=== PATIENT | male | born 1980 | race Caucasian/White ===

== ENCOUNTER 2019-02-27 15:47 | Observation (INO) | payer OTHER, SELFPAY ==
[2019-02-27 15:48] VITALS: BP 144/86; PULSE 80; RESP 16; TEMP 36.9; O2SAT 98; BMI 32.3
--- NOTE | 2019-02-27 15:55 | CT_ITS ---
STUDY: CT CHEST WITHOUT CONTRAST REASON FOR EXAM: Male, 38 years old. Cellulitis in the left upper chest. RADIATION DOSAGE (If Supplied By Facility): CTDIvol = ( 19.9 ) mGy, DLP = ( 671.25 ) mGycm TECHNIQUE: Transaxial imaging was performed without the administration of intravenous contrast material. Multiplanar coronal and sagittal images were reformatted. Individualized dose optimization techniques were used for this CT. COMPARISON: None. FINDINGS: The lungs are normal. There is no demonstrated pleural abnormality. Normal heart and pericardium. Normal mediastinum. Normal hilar regions. Normal unenhanced pulmonary arteries. Normal aorta arch and descending thoracic aorta. Arthritic change of the spine. Fusion of upper thoracic vertebra. There is skin thickening and subcutaneous edema in the left anterior chest. There is 2.1 cm fluid collection. There is bilateral gynecomastia. There is no demonstrated abnormality of the visualized upper abdomen. CT/Chest without Contrast IMPRESSION: Subcutaneous edema with fluid collection suggesting abscess in the left anterior chest wall. Lungs are clear. Electronically Signed: Wilmer Cuellar MD at 16:43 EDT , Service support ,
--- NOTE | 2019-02-27 15:58 | ED.DCSUM_ITS ---
- ER Visit Summary Date of Service: 02/27/19 Chief Complaint: Left chest abscess History of Present Illness: The patient is a 38 M who had an abscess on the left chest wall. He had a drain in the office by knockout machine operator a couple of days ago. He returns today for a recheck and the cellulitis is spreading on his left chest wall. He states that when they drained it not much came out of the wound. He has been on amoxicillin for a couple of days. He denies any fevers. He has no history of this in the past. Physical Examination: Vital signs reviewed. Patient afebrile. Left chest wall area has induration and cellulitis extending into the mid axillary line on the left. This is below the nipple line. It does appear to be spreading as there is a line of demarcation and it has spread past this. There is no fluctuance at this time. There is no drainage Test Results: White blood count 11.2. CT reveals subcutaneous edema. Emergency Department Course and Treatment: Patient was given a dose of IV vancomycin. Patient will be admitted to the hospital for IV antibiotic treatment. Wound cultures were obtained in the ED. Treatment Plan: [] Disposition: Admit Impression: Chest wall cellulitis Failure of outpatient treatment This note was generated with [employer] dictation software. It may contain incorrect words, spelling, and punctuation that were not noted in review of the chart prior to signing
[2019-02-27 16:14] LABS: Absolute Lymphocyte Count 2.07 X10^3/ul (0.83-4.51); Absolute Neutrophil Count 7.8 X10^3/uL (2.0-7.7); Basophil# 0.06 X10^3/uL; Basophil% 0.5 % (0-1); Eosinophil# 0.21 X10^3/uL; Eosinophils% 1.9 % (0-5); Hematocrit 43.5 % (40-54); Hemoglobin 15.6 g/dl (13.0-16.5); Lymphocyte # 2.07 X10^3/ul (4.0); Lymphocyte % 18.5 % (19-41); Mean Corp Hgb Conc 35.9 g/gl (32-36); Mean Corpuscular Hgb 30.3 pg (27.0-32.0); Mean Corpuscular Volume 84.5 fL (80-94); Mean Platelet Vol. 9.6 fl (6.2-12.0); Monocyte# 1.01 X10^3/uL; Neutrophil # 7.81 X10^3/uL (2.7-7.7); Platelet Count 283 K/mm3 (150-450); RBC Distribution Width CV 12.8 % (11.6-14.6); RBC Distribution Width SD 38.5 fl (35.1-43.9); Red Blood Count 5.15 M/mm3 (4.6-6.2); White Blood Count 11.2 K/mm3 (4.4-11.0)
[2019-02-27 16:16] LABS: POSITIVE COUNT NO; POSITIVE DIFFERENTIAL NO; POSITIVE MORPHOLOGY NO
[2019-02-27 16:28] LABS: Anion Gap 5 (5-15); BUN 13 mg/dL (7-18); BUN/Creat Ratio 11.9 RATIO (10-20); Chloride 104 mmol/L (98-107); Creatinine, Serum 1.09 mg/dL (0.70-1.30); EST Glomerular Filtration Rate 80 mL/min (>60); Est Glom Filt Rate - Afr Amer 97 mL/min (>60); Estimated Creatinine Clearance 102.83 ml/min; Glucose 95 mg/dL (74-106); Potassium 3.8 mmol/L (3.5-5.1); Sodium Level 139 mmol/L (136-145)
--- NOTE | 2019-02-27 17:39 | PCM.HP.STD ---
Problem List (1) Cellulitis of chest wall Status: Acute History of Present Illness Date of Admission: 02/27/19 Chief Complaint: Chest wall cellulitis. The patient is a 38 year old M who presents emergency room due to left chest cellulitis. He reports he has had a small lump under the skin in the left chest area for a long time which his primary care provider told him he thought was a cyst. It has not caused him any problems up until now. 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 He reports he had increased redness of the left chest area following that incident. He went to a tubing machine tender on Sunday who attempted to drain the suspected cyst, he reports no there was no drainage. He was placed on oral amoxicillin and has had increased redness since that time. He denies fever, chills. He denies other past medical history. Past Medical History Allergies No Known Allergies Allergy (Verified 02/27/19 15:50) Home Medications: Ambulatory Orders Medication Instructions Recorded Amoxicillin [Amoxil] 500 mg PO Q12H 02/27/19 Ibuprofen 800 mg PO PRN PRN 02/27/19 Surgical History: - - Right hip replacement, hernia repair, tonsillectomy. Psychiatric History: No pertinent psych hx Lives: Spouse/ Significant Other Smoking Status: Never smoker Tobacco Use: Non-smoker Alcohol: Occasional Drugs: None - *Family History Maternal History Items: - Paternal History Items: High Cholesterol, Heart Disease - open heart, Hypertension Review of Systems Constitutional: Denies: Chills, Fever, Weight Change HEENT: Denies: Head Aches, Sinus Congestion, Sinus Drainage Cardiovascular: Denies: Chest Pain, Palpitations Respiratory: Denies: Cough, Shortness of breath at rest, Sputum production Gastrointestinal: Denies: Abdominal Pain, Nausea, Vomiting Genitourinary: Denies: Dysuria Musculoskeletal: Denies: Joint Pain, Joint Tenderness Skin: Reports: - - Left chest area of redness below left nipple, incision area from attempted abscess drainage. Neurological: Denies: Numbness, Tingling, Focal weakness Psychiatric: Denies: Anxiety, Depression, Homicidal Ideations, Suicidal Ideations Hematologic/ Lymphatic: Denies: Easy Bruising, Easy Bleeding VTE Information - Inpt Only VTE Present on Admission: No VTE Mechan Device Prophylaxis: None VTE Pharm Prophylaxis ordered?: No Reason prophylaxis not ordered:: Treatment Not Indicated Patient Problems: Active and Suspected Problems Cellulitis of chest wall (Acute) - Physical Exam General: Alert, Oriented x3, Cooperative HEENT: Atraumatic, PERRLA, EOMI, Normocephalic Neck: Supple, No JVD, Negative Carotid Bruits Lungs: Clear to auscultation, Normal air movement Cardiovascular: Regular rate, Regular Rhythm, Normal S1, Normal S2, No murmurs Abdomen: Bowel Sounds Present, Soft, Non Tender, Non-Distended Extremities: No clubbing, No cyanosis, No edema, Capillary Refill Less than 3 Seconds Skin: - - Left chest area of erythema below the left nipple, incision from prior attempted abscess drainage. No drainage noted. Musculoskeletal: No Tenderness to Palpation of Joints or Extremities Neurological: Cranial nerves II-XII grossly intact, Neuro grossly intact Psych/Mental Status: Normal Affect, Appropriate Vital Signs Temp Pulse Resp BP Pulse Ox 98.4 F 80 16 144/86 H 98 02/27/19 15:48 02/27/19 15:48 02/27/19 15:48 02/27/19 15:48 02/27/19 15:48 Oxygen Delivery Method Room Air Weight: 245 lb Body Mass Index (BMI) 32.3 Laboratory Tests Past 24 Hrs 02/27/19 02/27/19 16:03 16:03 WBC 11.2 H RBC 5.15 Hgb 15.6 Hct 43.5 MCV 84.5 MCH 30.3 MCHC 35.9 RDW 12.8 RDW Differential 38.5 Plt Count 283 MPV 9.6 Immature Gran % (Auto) 0.100 Neut % (Auto) 70.0 Lymph % (Auto) 18.5 L [place] % (Auto) 9.0 Eos % (Auto) 1.9 Baso % (Auto) 0.5 Absolute Neuts (auto) 7.8 H Absolute Lymphs (auto) 2.07 Total Counted Not Reportable Sodium 139 Potassium 3.8 Chloride 104 Carbon Dioxide 30.0 Anion Gap 5 BUN 13 Creatinine 1.09 Estim Creat Clear Calc 102.83 Est GFR (MDRD) Af Amer 97 Est GFR (MDRD) Non-Af 80 BUN/Creatinine Ratio 11.9 Glucose 95 Calcium 9.0 Assessment/Plan All Active Problems Cellulitis of chest wall (Acute) 1. Left chest wall cellulitis, failed outpatient treatment with amoxicillin-chest CT shows subcutaneous edema with fluid collection suggesting abscess in the left anterior chest wall. Patient was treated with IV vancomycin in ER. Cultures obtained from area of prior attempted I&D. Mild leukocytosis. Afebrile. Begin IV Unasyn. Follow cultures. DVT prophylaxis-not indicated, low risk. Encourage early ambulation. This patient was seen by BILL Matson under the supervision of Dr. Gayle.
[2019-02-27 17:51] VITALS: BP 148/90; PULSE 76; RESP 16; TEMP 36.9; O2SAT 98
[2019-02-27 17:58] VITALS: BMI 32.3
--- NOTE | 2019-02-27 17:58 | CASEMGMT ---
RN CM Assessment Introduced role of RN CM to patient.? Patient is alert, oriented and able?to participate in RN CM Assessment. ?Care providers, pharmacy, and demographics verified. Presentation: Started on Amoxicillin 02/25/19 for Cellulitis to left chest wall Admit Dx: Cellulitis of chest wall Re-Admit: No Barriers/Issues: None PCP: None, patient would like a list to establish PCP Specialists: None [facility]erred [facility] Insurance: MMO Rx Benefit: Yes? ?LNOK: Paige Bernal LW/HPOA: No, Declined offered information Living Arrangements:? Lives with and kids in a 2 story home. 3-4 steps to enter. ADL?s: Independent with ambulation and ADL's. Transportation: Patient drives, to drive on [place] DME: None HHC: None SNF: None Goal: Home DC PLAN: Home with possible IV Abx. Shahab Azar RNCM
[2019-02-27 18:31] VITALS: BP 150/86; PULSE 72; RESP 12; TEMP 37.1; O2SAT 99
[2019-02-27 20:15] VITALS: BP 145/67; PULSE 78; RESP 18; TEMP 37.2; O2SAT 98
[2019-02-27 20:25] LABS: M R Staph aureus DNA By PCR Negative (Negative); Probe Check PASS; Specimen Processing Control PASS; Staph aureus DNA By PCR NEGATIVE (Negative)
--- NOTE | 2019-02-27 22:17 | PCM.CONS.GEN ---
Reason for Consult Date of Consultation: 02/27/19 Reason for Consultation: Left chest wall abscess. REFERRING PHYSICIAN: Dr. Gayle. PLASTIC SHEETS SUPERVISOR: Dr. Josue. History of Present Illness: The patient is a 38 year old M who was admitted to the hospital with a left chest wall abscess inferior to his nipple that started about a week ago when he was running from a cow [place] the farm and hit his chest on a fence while he was trying to get away. He started developing increasing pain, and redness, and swelling. He states he was told he had a cystic lesion in the area for several years without symptoms. Because of his symptomatology, he went to the Residential Fee Appraiser who tried an I&D in the office without expressing any fluid or pus. He was started on Amoxicillin antibiotics. His symptomatology worsened which prompted him to come to the ED. He was given a dose of Vancomycin. He was then started on Unasyn. His WBC was 11.2. CT scan showed subcutaneous edema with fluid collection suggesting abscess in the left anterior chest wall. Patient denies fever. I was asked to evaluate this patient for surgical options for treatment. Past Medical History Allergies No Known Allergies Allergy (Verified 02/27/19 15:50) Current Medications Acetaminophen (Tylenol) 650 mg PO Q6H PRN PRN PRN Reason: Mild Pain (1-3)/Temp > 100.7 F Ampicillin Sodium/Sulbactam (Sodium 3 gm/ Sodium Chloride) 112 mls @ 150 mls/hr IV Q6 GABINO Last Admin: 02/27/19 20:14 Dose: 150 mls/hr Temazepam (Restoril) 15 mg PO QHS PRN PRN PRN Reason: INSOMNIA Home Medications: Ambulatory Orders Medication Instructions Recorded Amoxicillin [Amoxil] 500 mg PO Q12H 02/27/19 Ibuprofen 800 mg PO PRN PRN 02/27/19 Surgical History: - - Right hip replacement, hernia repair, tonsillectomy. Psychiatric History: No pertinent psych hx Lives: Spouse/ Significant Other Smoking Status: Never smoker Tobacco Use: Non-smoker Alcohol: Occasional Drugs: None - *Family History Maternal History Items: - Paternal History Items: High Cholesterol, Heart Disease - open heart, Hypertension Review of Systems Comment: Constitutional: Denies: Chills, Fever, Weight Change. HEENT: Denies: Head Aches, Sinus Congestion, Sinus Drainage. Cardiovascular: Denies: Chest Pain, Palpitations. Respiratory: Denies: Cough, Shortness of breath at rest, Sputum production. Gastrointestinal: Denies: Abdominal Pain, Nausea, Vomiting. Genitourinary: Denies: Dysuria. Musculoskeletal: Denies: Joint Pain, Joint Tenderness. Skin: Reports: - - Left chest area of redness below left nipple, incision area from attempted abscess drainage. Neurological: Denies: Numbness, Tingling, Focal weakness. Psychiatric: Denies: Anxiety, Depression, Homicidal Ideations, Suicidal Ideations. Hematologic/ Lymphatic: Denies: Easy Bruising, Easy Bleeding Patient Problems: Active and Suspected Problems Cellulitis of chest wall (Acute) - Physical Exam General: Alert, Oriented x3, Cooperative. HEENT: PERRLA, EOMI. Neck: Supple, nontender. No cervical adenopathy. Chest Wall: Lungs: Clear to auscultation. On the left chest wall inferior to the nipple is an area of induration and tenderness and increasing redness. There is a horizontal wound in the center from previous attempt at I&D at [employer] [employer] office. The induration and fluctuance measures about 6 cm. The surrounding redness measures about 12 cm with extension toward the axilla. Cardiovascular: Regular rate, Regular Rhythm. Abdomen: Soft, Non-Distended. Extremities: No clubbing, No cyanosis, No edema. No axillary adenopathy. Musculoskeletal: No Tenderness to Palpation of Joints or Extremities Neurological: Cranial nerves II-XII grossly intact. Psych/Mental Status: Normal Affect, Appropriate Vital Signs Temp Pulse Resp BP Pulse Ox 98.9 F 78 18 145/67 H 98 02/27/19 20:15 02/27/19 20:15 02/27/19 20:15 02/27/19 20:15 02/27/19 20:15 Oxygen Delivery Method Room Air Weight: 245 lb Body Mass Index (BMI) 32.3 Laboratory Tests Past 24 Hrs 02/27/19 02/27/19 02/27/19 16:03 16:03 17:40 WBC 11.2 H RBC 5.15 Hgb 15.6 Hct 43.5 MCV 84.5 MCH 30.3 MCHC 35.9 RDW 12.8 RDW Differential 38.5 Plt Count 283 MPV 9.6 Immature Gran % (Auto) 0.100 Neut % (Auto) 70.0 Lymph % (Auto) 18.5 L [place] % (Auto) 9.0 Eos % (Auto) 1.9 Baso % (Auto) 0.5 Absolute Neuts (auto) 7.8 H Absolute Lymphs (auto) 2.07 Total Counted Not Reportable Sodium 139 Potassium 3.8 Chloride 104 Carbon Dioxide 30.0 Anion Gap 5 BUN 13 Creatinine 1.09 Estim Creat Clear Calc 102.83 Est GFR (MDRD) Af Amer 97 Est GFR (MDRD) Non-Af 80 BUN/Creatinine Ratio 11.9 Glucose 95 Calcium 9.0 S.aureus Protein A PCR NEGATIVE MRSA (PCR) Negative Assessment/Plan All Active Problems Open wound of left chest wall with complication (Acute) Chest wall abscess (Acute) Cellulitis of chest wall (Acute) Left chest wall abscess. CT reviewed. There is a fluid collection suggesting an abscess in the left chest wall. Recommend operative intervention with incision and drainage and excisional debridement. Will send tissue to Pathology for analysis to rule out carcinoma and to Microbiology for culture. A positive culture may necessitate antibiotic modification. He is presently on Unasyn. Will leave the wound open and begin wound care with the VAC. If the wound is not that deep, may do daily Silver dressing changes instead. 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 Having a VAC apparatus may get in the way at work. If the VAC is used initially, will change to Silver dressing changes when he is ready to go back to work because logistically it would be easier for him. Anticipate increased metabolic demands from the infection and from the planned surgical wound. Will check a Prealbumin and encourage nutritional supplementation with protein to help the healing process. After discharge, may followup at the Wound Center if the VAC is used. If the healing process reaches a plateau may consider delayed closure with complex secondary wound closure or skin grafting or a skin flap reconstruction. Patient was informed of the risks and complications of the procedure including alternatives to surgery. These were discussed with the patient personally. Patient voices understanding and wishes to proceed. Patient understands that the wound will be left open during the initial postop healing period. Will proceed with surgery tomorrow under general anesthesia. Code Visit Inpatient E&M: 15271 Init Hosp L2 - ICD-10 - L02.213
[2019-02-28] VITALS (11 sets, daily range): BP systolic 118–150; BP diastolic 62–88; PULSE 51–84; RESP 16–18; TEMP 36.7–37.3; O2SAT 95–99; BMI 32.4
[2019-02-28 05:50] LABS: Absolute Lymphocyte Count 2.03 X10^3/ul (0.83-4.51); Absolute Neutrophil Count 6.6 X10^3/uL (2.0-7.7); Basophil# 0.05 X10^3/uL; Basophil% 0.5 % (0-1); Eosinophil# 0.21 X10^3/uL; Eosinophils% 2.1 % (0-5); Hematocrit 42.8 % (40-54); Hemoglobin 15.1 g/dl (13.0-16.5); Lymphocyte # 2.03 X10^3/ul (4.0); Lymphocyte % 20.3 % (19-41); Mean Corp Hgb Conc 35.3 g/gl (32-36); Mean Corpuscular Volume 85.1 fL (80-94); Mean Platelet Vol. 9.9 fl (6.2-12.0); Monocyte# 1.03 X10^3/uL; Monocyte% 10.3 % (0-10); Neutrophil # 6.64 X10^3/uL (2.7-7.7); Neutrophil % 66.6 % (47-70); Platelet Count 256 K/mm3 (150-450); RBC Distribution Width CV 12.8 % (11.6-14.6); RBC Distribution Width SD 39.2 fl (35.1-43.9); Red Blood Count 5.03 M/mm3 (4.6-6.2)
[2019-02-28 05:57] LABS: POSITIVE COUNT NO; POSITIVE DIFFERENTIAL NO; POSITIVE MORPHOLOGY NO
--- NOTE | 2019-02-28 09:55 | NURSING ---
Niesha in [facility] called this morning and states that patient will be picked up for surgery at 1215 today. Primary nurse Zara and SENIOR NURSE MANAGER's notified. Dr. Josue notified this RN this morning that patient does appear to be doing much better- but that after discussion pt decided to go ahead with surgery so that he will begin healing and not have to return at a later day for surgery.
--- NOTE | 2019-02-28 12:56 | PN_ITS ---
Patient Problems: Active and Suspected Problems Cellulitis of chest wall (Acute) Subjective: Patient seen and examined. Cellulitis appears improved. Patient denies fever, chills. Denies other complaints. Plan for surgical debridement with Dr. Josue. - Physical Exam General: Alert, Oriented x3, Cooperative HEENT: Atraumatic, PERRLA, EOMI, Normocephalic Neck: Supple, No JVD, Negative Carotid Bruits Lungs: Clear to auscultation, Normal air movement Cardiovascular: Regular rate, Regular Rhythm, Normal S1, Normal S2, No murmurs Abdomen: Bowel Sounds Present, Soft, Non Tender, Non-Distended Extremities: No clubbing, No cyanosis, No edema, Capillary Refill Less than 3 Seconds Skin: - - Left chest area of erythema below the left nipple, incision from prior attempted abscess drainage. No drainage noted. Erythema improved. Musculoskeletal: No Tenderness to Palpation of Joints or Extremities Neurological: Cranial nerves II-XII grossly intact, Neuro grossly intact Psych/Mental Status: Normal Affect, Appropriate Vital Signs Temp Pulse Resp BP Pulse Ox 98.8 F 73 16 124/79 H 98 02/28/19 11:59 02/28/19 11:59 02/28/19 11:59 02/28/19 11:59 02/28/19 11:59 Oxygen Delivery Method Room Air Weight: 244 lb 14.937 oz Body Mass Index (BMI) 32.4 Intake and Output for Last 24 Hours 02/26/19 02/27/19 02/28/19 23:59 23:59 23:59 Intake Total 100 / 100 Balance 100 / 100 Microbiology Past 72 Hours 02/27/19 17:40 Wound Culture - Preliminary Wound Abcess - Chest No growth-Final to follow Laboratory Tests Past 24 Hrs 02/27/19 02/27/19 02/27/19 16:03 16:03 17:40 WBC 11.2 H RBC 5.15 Hgb 15.6 Hct 43.5 MCV 84.5 MCH 30.3 MCHC 35.9 RDW 12.8 RDW Differential 38.5 Plt Count 283 MPV 9.6 Immature Gran % (Auto) 0.100 Neut % (Auto) 70.0 Lymph % (Auto) 18.5 L [place] % (Auto) 9.0 Eos % (Auto) 1.9 Baso % (Auto) 0.5 Absolute Neuts (auto) 7.8 H Absolute Lymphs (auto) 2.07 Total Counted Not Reportable Sodium 139 Potassium 3.8 Chloride 104 Carbon Dioxide 30.0 Anion Gap 5 BUN 13 Creatinine 1.09 Estim Creat Clear Calc 102.83 Est GFR (MDRD) Af Amer 97 Est GFR (MDRD) Non-Af 80 BUN/Creatinine Ratio 11.9 Glucose 95 Calcium 9.0 S.aureus Protein A PCR NEGATIVE MRSA (PCR) Negative 02/28/19 05:24 WBC 10.0 RBC 5.03 Hgb 15.1 Hct 42.8 MCV 85.1 MCH 30.0 MCHC 35.3 RDW 12.8 RDW Differential 39.2 Plt Count 256 MPV 9.9 Immature Gran % (Auto) 0.200 Neut % (Auto) 66.6 Lymph % (Auto) 20.3 [place] % (Auto) 10.3 H Eos % (Auto) 2.1 Baso % (Auto) 0.5 Absolute Neuts (auto) 6.6 Absolute Lymphs (auto) 2.03 Total Counted Not Reportable Sodium Potassium Chloride Carbon Dioxide Anion Gap BUN Creatinine Estim Creat Clear Calc Est GFR (MDRD) Af Amer Est GFR (MDRD) Non-Af BUN/Creatinine Ratio Glucose Calcium S.aureus Protein A PCR MRSA (PCR) Medical Necessity - Tobacco Use Smoking Status: Never smoker Tobacco Use: Non-smoker Assessment/Plan All Active Problems Cellulitis of chest wall (Acute) 1. Left chest wall cellulitis, failed outpatient treatment with amoxicillin- chest CT shows subcutaneous edema with fluid collection suggesting abscess in the left anterior chest wall. Patient was treated with IV vancomycin in ER. Cultures obtained from area of prior attempted I&D, pending. Mild leukocytosis resolved. Afebrile. Continue IV Unasyn. Dr. Josue consulted. Plan for surgical debridement later today. Anticipate DC home tomorrow. DVT prophylaxis-not indicated, low risk. Encourage early ambulation. This patient was seen by BILL Matson under the supervision of Dr. Gayle.
--- NOTE | 2019-02-28 14:56 | NURSING ---
PT OFF UNIT TO [facility]. REPORT CALLED TO ALEIDA GODINEZ.
--- NOTE | 2019-02-28 17:12 | PCM.OPRPT ---
Report of Operation Date of Procedure: 02/28/19 Pre-Operative Diagnosis: Left chest wall abscess. Post-Operative Diagnosis: Left chest wall abscess involving chest wall muscles. Surgery/Procedure Performed:: Surgical preparation left chest wall with incision and drainage and excisional debridement abscess involving chest wall muscles (16.5 cm2). Description of Surgical Findings:: The patient is a 38 year old M who was admitted to the hospital with a left chest wall abscess inferior to his nipple that started about a week ago when he was running from a cow [place] the farm and hit his chest on a fence while he was trying to get away. He started developing increasing pain, and redness, and swelling. He states he was told he had a cystic lesion in the area for several years without symptoms. Because of his symptomatology, he went to the Manager Trade Marketing who tried an I&D in the office without expressing any fluid or pus. He was started on Amoxicillin antibiotics. His symptomatology worsened which prompted him to come to the ED. He was given a dose of Vancomycin. He was then started on Unasyn. His WBC was 11.2. CT scan showed subcutaneous edema with fluid collection suggesting abscess in the left anterior chest wall. Patient denies fever. I was asked to evaluate this patient for surgical options for treatment. Patient was informed of the risks and complications of the procedure including alternatives to surgery. These were discussed with the patient personally. Patient voices understanding and wishes to proceed. Size of defect left chest wall - 5.5 x 3 x 3 cm. maritime engineer: None Type of Anesthesia:: General Specimen's removed: 1. Left chest wall abscess tissue to Pathology and Microbiology. 2. MRSA Wound DNA by PCR. Drains: None. Estimated Blood Loss (mL): 20 ml. Description of Procedure: Patient was taken to OR in supine position and was placed under general anesthesia. The left chest wall was prepped and draped in the usual fashion. SCD's were placed for DVT prophylaxis. Perioperative antibiotics were given intravenously. Using xylocaine with epinephrine, the left chest wall was infiltrated. After waiting 5 minutes for the anesthetic to take effect, I made a horizontal elliptical incision over the greatest area of induration and fluctuance. Initially there was a lot of fat necrosis in the subcutaneous tissue. In the deeper subcutaneous tissue was a pocket with copious pus that was drained. The pus extended to the chest wall and involved the underlying chest wall muscles. The surrounding scar tissue which included some chest wall muscle was excised and debrided. The induration and fat necrosis was also excised and debrided. Tissue was sent to Pathology for analysis to rule out carcinoma and to Microbiology for culture. A positive culture may necessitate antibiotic modification. A MRSA Wound DNA by PCR was also done. The wound was irrigated with saline. Hemostasis was obtained with electrocautery. The size of the defect left chest wall after incision and drainage and excisional debridement abscess was 5.5 x 3 x 3 cm. The wound was then dressed with Mepitel nonadherent dressing followed by Kerlix gauze and Betadine followed by dry Kerlix gauze and an ABD compression dressing. Patient tolerated the procedure well and was sent to PACU in satisfactory condition. Patient will be sent upstairs for continued postop care. The wound VAC will be placed tomorrow. Grafts/Implants Used: None. - Complications None. - Admit VTE Documentation VTE Present on Admission: No VTE Mechan Device Prophylaxis: SCD's VTE Pharm Prophylaxis ordered?: No Code Visit Surgery Charges CPT - 90629 L02.213, S21.102A 24173 L02.213
--- NOTE | 2019-02-28 17:16 | OP.PCM_ITS ---
Report of Operation Date of Procedure: 02/28/19 Pre-Operative Diagnosis: Left chest wall abscess. Post-Operative Diagnosis: Left chest wall abscess involving chest wall muscles. Surgery/Procedure Performed:: Surgical preparation left chest wall with incision and drainage and excisional debridement abscess involving chest wall muscles (16.5 cm2). Description of Surgical Findings:: The patient is a 38 year old M who was admitted to the hospital with a left chest wall abscess inferior to his nipple that started about a week ago when [place] hit his chest on a fence while he was trying to get away. He started developing increasing pain, and redness, and swelling. He states he was told he had a cystic lesion in the area for several years without symptoms. Because of his symptomatology, he went to the De rmatologist who tried an I&D in the office without expressing any fluid or pus. He was started on Amoxicillin antibiotics. His symptomatology worsened which prompted him to come to the ED. He was given a dose of Vancomycin. He was then started on Unasyn. His WBC was 11.2. CT scan showed subcutaneous edema with fluid collection suggesting abscess in the left anterior chest wall. Patient denies fever. I was asked to evaluate this patient for surgical options for treatment. Patient was informed of the risks and complications of the procedure including alternatives to surgery. These were discussed with the patient personally. Patient voices understanding and wishes to proceed. Size of defect left chest wall - 5.5 x 3 x 3 cm. chief technology officer: None Type of Anesthesia:: General Specimen's removed: 1. Left chest wall abscess tissue to Pathology and Microbiology. 2. MRSA Wound DNA by PCR. Drains: None. Estimated Blood Loss (mL): 20 ml. Description of Procedure: Patient was taken to OR in supine position and was placed under general anesthesia. The left chest wall was prepped and draped in the usual fashion. SCD's were placed for DVT prophylaxis. Perioperative antibiotics were given intravenously. Using xylocaine with epinephrine, the left chest wall was infiltrated. After waiting 5 minutes for the anesthetic to take effect, I made a horizontal elliptical incision over the greatest area of induration and fluctuance. Initially there was a lot of fat necrosis in the subcutaneous tissue. In the deeper subcutaneous tissue was a pocket with copious pus that was drained. The pus extended to the chest wall and involved the underlying chest wall muscles. The surrounding scar tissue which included some chest wall muscle was excised and debrided. The induration and fat necrosis was also e xcised and debrided. Tissue was sent to Pathology for analysis to rule out carcinoma and to Microbiology for culture. A positive culture may necessitate antibiotic modification. A MRSA Wound DNA by PCR was also done. The wound was irrigated with saline. Hemostasis was obtained with electrocautery. The size of the defect left chest wall after incision and drainage and excisional debridement abscess was 5.5 x 3 x 3 cm. The wound was then dressed with Mepitel nonadherent dressing followed by Kerlix gauze and Betadine followed by dry Kerlix gauze and an ABD compression dressing. Patient tolerated the procedure well and was sent to PACU in satisfactory condition. Patient will be sent upstairs for continued postop care. The wound VAC will be placed tomorrow. Grafts/Implants Used: None. - Complications None. - Admit VTE Documentation VTE Present on Admission: No VTE Mechan Device Prophylaxis: SCD's VTE Pharm Prophylaxis ordered?: No Code Visit Surgery Charges CPT - 25634 L02.213, S21.102A 77204 L02.213
[2019-02-28] MEDS: Acetaminophen 325 MG Tablet 650 MG PO (21:50)
[2019-03-01 03:53] VITALS: BP 122/70; PULSE 55; RESP 16; TEMP 36.9; O2SAT 98
[2019-03-01] MEDS: oxyCODONE 5 MG Tablet 10 MG PO ×2 (05:32→16:14)
[2019-03-01 07:38] VITALS: BP 120/82; PULSE 54; RESP 16; TEMP 36.8; O2SAT 97
[2019-03-01 07:58] LABS: Hematocrit 44.2 % (40-54); Hemoglobin 15.5 g/dl (13.0-16.5); Mean Corp Hgb Conc 35.1 g/gl (32-36); Mean Corpuscular Hgb 30.6 pg (27.0-32.0); Mean Corpuscular Volume 87.4 fL (80-94); Mean Platelet Vol. 9.7 fl (6.2-12.0); Platelet Count 265 K/mm3 (150-450); RBC Distribution Width CV 12.7 % (11.6-14.6); RBC Distribution Width SD 40.7 fl (35.1-43.9); Red Blood Count 5.06 M/mm3 (4.6-6.2); White Blood Count 8.6 K/mm3 (4.4-11.0)
[2019-03-01 08:02] LABS: Scan Indicated on CBC? Y/N NO
[2019-03-01 08:08] VITALS: PULSE 54
[2019-03-01 08:21] LABS: Anion Gap 4 (5-15); BUN 12 mg/dL (7-18); BUN/Creat Ratio 12.3 RATIO (10-20); Calcium,Total 8.8 mg/dL (8.5-10.1); Chloride 111 mmol/L (98-107); Creatinine, Serum 0.97 mg/dL (0.70-1.30); EST Glomerular Filtration Rate 91 mL/min (>60); Est Glom Filt Rate - Afr Amer 110 mL/min (>60); Estimated Creatinine Clearance 112.22 ml/min; Glucose 99 mg/dL (74-106); Potassium 4.4 mmol/L (3.5-5.1); Prealbumin 27.2 mg/dL (20.0-40.0); Sodium Level 141 mmol/L (136-145)
[2019-03-01] MEDS: 0.9% NaCl Peripheral Flush Adult/Peds IV (11:55)
[2019-03-01] MEDS: HYDROmorphone 1 MG/ML Syringe IV (11:56)
--- NOTE | 2019-03-01 12:34 | PN_ITS ---
Patient Problems: Active and Suspected Problems Cellulitis of chest wall (Acute) Subjective: Patient seen and examined. Reports increased chest discomfort following I&D yesterday. Denies fever, chills. Denies other associated complaints. - Physical Exam General: Alert, Oriented x3, Cooperative HEENT: Atraumatic, PERRLA, EOMI, Normocephalic Neck: Supple, No JVD, Negative Carotid Bruits Lungs: Clear to auscultation, Normal air movement Cardiovascular: Regular rate, Regular Rhythm, Normal S1, Normal S2, No murmurs Abdomen: Bowel Sounds Present, Soft, Non Tender, Non-Distended Extremities: No clubbing, No cyanosis, No edema, Capillary Refill Less than 3 Seconds Skin: No rashes, No breakdown, - - Left chest postoperative dressing clean dry and intact. Musculoskeletal: No Tenderness to Palpation of Joints or Extremities Neurological: Cranial nerves II-XII grossly intact, Neuro grossly intact Psych/Mental Status: Normal Affect, Appropriate Vital Signs Temp Pulse Resp BP Pulse Ox 98.2 F 54 L 16 120/82 H 97 03/01/19 07:38 03/01/19 08:08 03/01/19 07:38 03/01/19 07:38 03/01/19 07:38 Oxygen Delivery Method Room Air Weight: 244 lb 14.937 oz Body Mass Index (BMI) 32.4 Intake and Output for Last 24 Hours 02/27/19 02/28/19 03/01/19 23:59 23:59 23:59 Intake Total 633 / 633 237 / 237 Balance 633 / 633 237 / 237 Microbiology Past 72 Hours 02/27/19 17:40 Gram Stain - Final Wound Abcess - Chest Wound Culture - Preliminary No growth-Final to follow Laboratory Tests Past 24 Hrs 03/01/19 03/01/19 07:25 07:25 WBC 8.6 RBC 5.06 Hgb 15.5 Hct 44.2 MCV 87.4 MCH 30.6 MCHC 35.1 RDW 12.7 RDW Differential 40.7 Plt Count 265 MPV 9.7 Sodium 141 Potassium 4.4 Chloride 111 H Carbon Dioxide 26.0 Anion Gap 4 L BUN 12 Creatinine 0.97 Estim Creat Clear Calc 112.22 Est GFR (MDRD) Af Amer 110 Est GFR (MDRD) Non-Af 91 BUN/Creatinine Ratio 12.3 Glucose 99 Calcium 8.8 Prealbumin 27.2 Medical Necessity - Tobacco Use Smoking Status: Never smoker Tobacco Use: Non-smoker Assessment/Plan All Active Problems Cellulitis of chest wall (Acute) 1. Left chest wall abscess with cellulitis, failed outpatient treatment with amoxicillin-chest CT shows subcutaneous edema with fluid collection suggesting abscess in the left anterior chest wall. Cultures obtained from area of prior attempted I&D, pending. Mild leukocytosis resolved. Afebrile. Continue IV Unasyn. Dr. Josue consulted. Patient underwent incision and drainage and excisional debridement of abscess involving the chest wall muscles 02/28/19. M RSA/MSSA PCR negative. PRN pain regimen. Plan for wound vac placement Sunday. DVT prophylaxis-not indicated, low risk. Encourage early ambulation. This patient was seen by BILL Matson under the supervision of Dr. Gayle.
--- NOTE | 2019-03-01 13:03 | PCM.PN.SRG ---
Patient Problems: Active and Suspected Problems Cellulitis of chest wall (Acute) Subjective: Postop #1 Patient is resting comfortably. - Physical Exam General: Alert, Oriented x3 HEENT: PERRLA, EOMI Oral: Moist Mucosa Neck: Supple Abdomen: Soft, Non-Distended Skin: Ulcer/ Wound - left chest wall wound is clean. No active bleeding noted. No further evidence of infection noted. VAC will be applied today. Neurological: Cranial nerves II-XII grossly intact Psych/Mental Status: Normal Affect, Appropriate Vital Signs Temp Pulse Resp BP Pulse Ox 98.2 F 54 L 16 120/82 H 97 03/01/19 07:38 03/01/19 08:08 03/01/19 07:38 03/01/19 07:38 03/01/19 07:38 Oxygen Delivery Method Room Air Weight: 244 lb 14.937 oz Body Mass Index (BMI) 32.4 Intake and Output for Last 24 Hours 02/27/19 02/28/19 03/01/19 23:59 23:59 23:59 Intake Total 633 / 633 237 / 237 Balance 633 / 633 237 / 237 Microbiology Past 72 Hours 02/28/19 Unknown Wound Culture - Preliminary Tissue - Chest No growth-Final to follow 02/27/19 17:40 Gram Stain - Final Wound Abcess - Chest Wound Culture - Preliminary No growth-Final to follow Laboratory Tests Past 24 Hrs 03/01/19 03/01/19 03/01/19 07:25 07:25 11:32 WBC 8.6 RBC 5.06 Hgb 15.5 Hct 44.2 MCV 87.4 MCH 30.6 MCHC 35.1 RDW 12.7 RDW Differential 40.7 Plt Count 265 MPV 9.7 Sodium 141 Potassium 4.4 Chloride 111 H Carbon Dioxide 26.0 Anion Gap 4 L BUN 12 Creatinine 0.97 Estim Creat Clear Calc 112.22 Est GFR (MDRD) Af Amer 110 Est GFR (MDRD) Non-Af 91 BUN/Creatinine Ratio 12.3 Glucose 99 Calcium 8.8 Prealbumin 27.2 S.aureus Protein A PCR Pending MRSA (PCR) Pending Medical Necessity - Tobacco Use Smoking Status: Never smoker Tobacco Use: Non-smoker Assessment/Plan All Active Problems Cellulitis of chest wall (Acute) 1. Left chest wall abscess involving chest wall muscles. 2. Open surgical wound left chest wall. 3. s/p surgical preparation left chest wall with incision and drainage and excisional debridement abscess involving chest wall muscles (16.5 cm2) Wound is stable. No active bleeding seen. No further evidence of infection. VAC will be applied today. Operative culture is negative thus far. Continue Unasyn. Prealbumin was 27.2. Encourage nutritional supplementation with protein to help the healing process. Awaiting VAC approval. Once it's approved, may be discharged. Anticipate po antibiotics. After discharge, may followup at the Wound Center.
[2019-03-01 13:37] VITALS: BP 127/78; PULSE 60; RESP 16; TEMP 36.7; O2SAT 96
[2019-03-01 14:40] LABS: M R Staph aureus DNA By PCR Negative (Negative); Probe Check PASS; Specimen Processing Control PASS; Staph aureus DNA By PCR NEGATIVE (Negative)
--- NOTE | 2019-03-01 17:20 | NURSING ---
DESIRAE called for placement of wound vac #[id number].... confirmation #[id number] spoke with Yola
[2019-03-01 20:02] VITALS: BP 145/74; PULSE 58; RESP 16; TEMP 36.9; O2SAT 98
--- NOTE | 2019-03-02 | ABS_PTH ---
PATIENT: SANDOVAL JALLOH LOC: [facility] U#:[id number] AGE/SX: 38/M ROOM: [facility]314 RE02/27/[address]: Dr. Daren Mora MD : 1980 BED: 1 DIS: 03/03/2019 SPEC #: [id number] RECD: 03/03/19 07:15 STATUS: LISA REQ #: [id number] MARU: 03/02/19 00:[address]: Joseph Josue DEPT: SURGICAL PATHOLOGY RECD BY: Osito Mccullough ENTERED: 03/03/19 13:15 SP TYPE: Abscess OTHR DR: MD Dr. Kurt Kilgore DO Dr. Prakash Chand, MD No Primary Care Phys Tissues: Chest wall, NOS Procedures: Surgery Specimen Level IV Comments: @ Ordering doctor for SUIII edited from to @ by ANAMIKAOD at 03/03/19 1451 @ Submitting doctor edited from to @ by RGOOD at 03/03/19 1451 HEADER OPERATION: Incision and drainage chest wall abscess PRE-OP DIAGNOSIS: Left chest wall abscess TISSUE SUBMITTED: Left chest wall abscess MICROSCOPIC DIAGNOSIS Left chest wall skin and soft tissue, excision: Ulceration with associated acute and chronic inflammation, granulation, abscess formation and focal fat necrosis. AM:elmer 03/04/19 MICROSCOPIC DESCRIPTION Slides are reviewed. GROSS DESCRIPTION Received in fixative is one container labeled with the patient's name and designated left chest wall. The specimen consists of a piece of skin with underlying tissue. The skin piece measures 3 x 2.5 cm. It was previously sectioned. The underlying adipose tissue measures 5 x 4.5 x 3 cm. No mass lesion is identified. Almond Roaster sections are submitted in two cassettes. / SJ:elmer 03/03/19 TC:2 CPT: 65601
[2019-03-02 01:56] VITALS: BP 135/84; PULSE 57; RESP 16; TEMP 36.8; O2SAT 99
[2019-03-02 08:00] VITALS: BP 127/84; PULSE 60; RESP 16; TEMP 36.8; O2SAT 97
--- NOTE | 2019-03-02 10:25 | PCM.PROGNOTE ---
Patient Problems: Active and Suspected Problems Cellulitis of chest wall (Acute) Subjective: Patient seen and examined. Wound VAC placed yesterday. Patient denies significant pain. Denies other complaints. - Physical Exam General: Alert, Oriented x3, Cooperative HEENT: Atraumatic, PERRLA, EOMI, Normocephalic Neck: Supple, No JVD, Negative Carotid Bruits Lungs: Clear to auscultation, Normal air movement Cardiovascular: Regular rate, Regular Rhythm, Normal S1, Normal S2, No murmurs Abdomen: Bowel Sounds Present, Soft, Non Tender, Non-Distended Extremities: No clubbing, No cyanosis, No edema, Capillary Refill Less than 3 Seconds Skin: No rashes, No breakdown, - - Left chest wound VAC in place. Musculoskeletal: No Tenderness to Palpation of Joints or Extremities Neurological: Cranial nerves II-XII grossly intact, Neuro grossly intact Psych/Mental Status: Normal Affect, Appropriate Vital Signs Temp Pulse Resp BP Pulse Ox 98.2 F 60 16 127/84 H 97 03/02/19 08:00 03/02/19 08:00 03/02/19 08:00 03/02/19 08:00 03/02/19 08:00 Oxygen Delivery Method Room Air Weight: 244 lb 14.937 oz Body Mass Index (BMI) 32.4 Intake and Output for Last 24 Hours 02/28/19 03/01/19 03/02/19 23:59 23:59 23:59 Intake Total 633 / 633 237 / 237 880 / 880 Balance 633 / 633 237 / 237 880 / 880 Microbiology Past 72 Hours 02/28/19 Unknown Gram Stain - Final Tissue - Chest Wound Culture - Preliminary No growth-Final to follow 02/27/19 17:40 Gram Stain - Final Wound Abcess - Chest Wound Culture - Preliminary No growth-Final to follow Laboratory Tests Past 24 Hrs 03/01/19 11:32 S.aureus Protein A PCR NEGATIVE MRSA (PCR) Negative Medical Necessity - Tobacco Use Smoking Status: Never smoker Tobacco Use: Non-smoker Assessment/Plan All Active Problems Open wound of left chest wall with complication (Acute) Chest wall abscess (Acute) Cellulitis of chest wall (Acute) 1. Left chest wall abscess with cellulitis, failed outpatient treatment with amoxicillin-chest CT shows subcutaneous edema with fluid collection suggesting abscess in the left anterior chest wall. Cultures obtained from area of prior attempted I&D, pending. Mild leukocytosis resolved. Afebrile. Continue IV Unasyn. Dr. Josue consulted. Patient underwent incision and drainage and excisional debridement of abscess involving the chest wall muscles 02/28/19. MRSA/MSSA PCR negative. PRN pain regimen. Wound VAC placed 03/01/2019. Patient will need transition to home vac tomorrow and home health set up. DVT prophylaxis-not indicated, low risk. Encourage early ambulation. This patient was seen by BILL Matson under the supervision of Dr. Gayle.
[2019-03-02 15:16] VITALS: BP 129/71; PULSE 57; RESP 18; TEMP 36.8; O2SAT 96
[2019-03-02 20:11] VITALS: BP 140/72; PULSE 59; RESP 16; TEMP 36.7; O2SAT 98
--- NOTE | 2019-03-02 23:09 | PCM.PN.SRG ---
Subjective: Postop #2 Patient is resting comfortably. Has some soreness on her left chest wall but is tolerable. - Physical Exam General: Alert, Oriented x3 HEENT: PERRLA, EOMI Oral: Moist Mucosa Neck: Supple Abdomen: Soft, Non-Distended Skin: Ulcer/ Wound - left chest wall wound is stable. VAC in place. Minimal drainage in the canister. Neurological: Cranial nerves II-XII grossly intact Psych/Mental Status: Normal Affect, Appropriate Vital Signs Temp Pulse Resp BP Pulse Ox 98.0 F 59 L 16 140/72 H 98 03/02/19 20:11 03/02/19 20:11 03/02/19 20:11 03/02/19 20:11 03/02/19 20:11 Oxygen Delivery Method Room Air Weight: 244 lb 14.937 oz Body Mass Index (BMI) 32.4 Intake and Output for Last 24 Hours 02/28/19 03/01/19 03/02/19 23:59 23:59 23:59 Intake Total 633 / 633 237 / 237 880 / 880 Balance 633 / 633 237 / 237 880 / 880 Microbiology Past 72 Hours 02/28/19 Unknown Gram Stain - Final Tissue - Chest Wound Culture - Preliminary No growth-Final to follow 02/27/19 17:40 Gram Stain - Final Wound Abcess - Chest Wound Culture - Preliminary No growth-Final to follow Medical Necessity - Tobacco Use Smoking Status: Never smoker Tobacco Use: Non-smoker Assessment/Plan All Active Problems Open wound of left chest wall with complication (Acute) Chest wall abscess (Acute) Cellulitis of chest wall (Acute) 1. Left chest wall abscess involving chest wall muscles. 2. Open surgical wound left chest wall. 3. s/p surgical preparation left chest wall with incision and drainage and excisional debridement abscess involving chest wall muscles (16.5 cm2) Wound is stable. VAC in place. To be changed tomorrow. Operative culture is negative thus far. Continue Unasyn. Can discharge home on Augmentin. Prealbumin was 27.2. Encourage nutritional supplementation with protein to help the healing process. Awaiting VAC approval. Once it's approved, may be discharged. After discharge, may followup at the Wound Center.
[2019-03-02] MEDS: oxyCODONE 5 MG Tablet 10 MG PO (23:24)
[2019-03-02] MEDS: 0.9% NaCl Peripheral Flush Adult/Peds IV (23:50)
[2019-03-03 02:05] VITALS: BP 126/74; PULSE 55; RESP 16; TEMP 36.4; O2SAT 100
[2019-03-03 08:01] VITALS: BP 138/86; PULSE 60; RESP 18; TEMP 37; O2SAT 98
[2019-03-03 08:05] VITALS: PULSE 64
[2019-03-03] MEDS: oxyCODONE 5 MG Tablet 10 MG PO (09:41)
[2019-03-03] MEDS: 0.9% NaCl Peripheral Flush Adult/Peds IV ×2 (09:42→11:46)
--- NOTE | 2019-03-03 10:06 | CASEMGMT ---
HERBERT QUIGLEY received updated that patient will require HHC and wound vac at discharge. Referral sent to [facility] and they are able to accept the patient. Patient updated regarding HHC setup and voiced understanding. HERBERT QUIGLEY will continue to follow this patient and plan for a safe discharge.
--- NOTE | 2019-03-03 10:24 | WORK.SCH_ITS ---
Work/School Excuse Work/School Excuse for:: Patient and family Please excuse this person from:: Other - Patient and family needed to cancel their plane reservations for 03/01/19 to [place] because the patient was admitted to hospital 02/27/19 for a severe infection that required complex surgery on 02/28/19. He will require antibiotics and wound care until healed and won't be able to fly until the wound is healed, tentatively 04/19/19. If you have any questions regarding these medical decisions please do not hesitate to contact me at [phone]. From: 02/27/19 through: 04/19/19 - tentative
--- NOTE | 2019-03-03 10:45 | NURSING ---
wound photo: left chest
--- NOTE | 2019-03-03 11:50 | DCINST_ITS ---
You will use the following diet at home:: No restrictions Discharge Activity: Return to Normal Activity Call your doctor if you observe: Fever of 101 or Higher, Uncontrolled pain Allergies/Adverse Reactions: Allergies No Known Allergies Allergy (Verified 02/27/19 15:50) Medications to take at Discharge Ibuprofen 800 mg PO PRN PRN 02/27/19 Amox/Clavulanate Tablet [Augmentin Tablet] 875 mg PO Q12H #10 tablet 03/03/19 Oxycodone [Oxyir] 10 mg PO Q4H PRN PRN 5 Days #30 tablet 03/03/19 The following prescriptions were given: Oxycodone [Oxyir] 10 mg PO Q4H PRN PRN 5 Days #30 tablet PRN Reason: Pain Amox/Clavulanate Tablet [Augmentin Tablet] 875 mg PO Q12H #10 tablet Primary Care Physician: Care Physician,No Primary [Primary Care Provider] - Please follow up with your Primary Care Physician in: 1 Week Test Results: Test results from this visit will be discussed in further detail at your follow- up appointment, if applicable. Please Follow Up With: Wound Center - Dr. Josue When: 1 Week Proposed Discharge Date: 03/03/19
--- NOTE | 2019-03-03 14:33 | CHAPLAIN ---
Type of Pastoral Visit _x__ Initial Visit ___ Follow-up Visit ___ On-call Visit ___ General Patient Visit ___ Spiritual Assessment ___ Family Conference ___ Bereavement ___ Rapid Response ___ Code Blue ___ Other (describe below) Pastoral Care Referral From _x__ Patient ___ Family ___ Nurse ___ Physician ___ [employer] Driver ___ Barrel Reamer ___ Other (describe below) Sacrament/Intervention _x__ Active listening ___ Anointing ___ Muslim ___ Bereavement ___ Communion ___ [place] exploration ___ ___ Life review ___ Prayer ___ Reconciliation ___ Sacrament of Sick ___ Supportive presence ___ Wedding ___ Other (describe below) Pastoral Comments
--- NOTE | 2019-03-03 14:48 | PCM.DC.SUM ---
<Lourdes Forbes - Last Filed: 03/03/19 14:53> Discharge Date and Diagnosis Date of Admission: 02/27/19 Date of Discharge: 03/03/19 - Primary Discharge Diagnosis 1. Left chest wall abscess with cellulitis, failed outpatient treatment with amoxicillin Hospital Course and Treatment Imaging Results: Diagnostic Data Chest CT 02/27/19 15:55 IMPRESSION: Subcutaneous edema with fluid collection suggesting abscess in the left anterior chest wall. Lungs are clear. Electronically Signed: Wilmer Cuellar MD at 16:43 EDT , Service support , Consultations 03/03/19 07:33 Consult: Onc/Wound/veterinary epidemiologist Routine Comment: Reason for Consult:: VAC left chest Dr. Josue- Plastic Surgery Operations: - - Left chest wound I&D Procedures: None Summary of Care Provided: The patient is a 38 year old M admitted 02/27/2019 due to chest wall cellulitis. 1. Left chest wall abscess with cellulitis, failed outpatient treatment with amoxicillin-chest CT shows subcutaneous edema with fluid collection suggesting abscess in the left anterior chest wall. Cultures obtained from area of prior attempted I&D, no growth. Mild leukocytosis resolved. Afebrile. Patient received IV Unasyn during admission. Dr. Josue consulted. Patient underwent incision and drainage and excisional debridement of abscess involving the chest wall muscles 02/28/19. MRSA/MSSA PCR negative. Wound VAC placed 03/01/2019. Patient will have home health at discharge. Follow-up with primary care physician in 1 week. Follow-up with wound center/Dr. Josue in 1 week. General: Alert, Oriented x3, Cooperative HEENT: Atraumatic, PERRLA, EOMI, Normocephalic Neck: Supple, No JVD, Negative Carotid Bruits Lungs: Clear to auscultation, Normal air movement Cardiovascular: Regular rate, Regular Rhythm, Normal S1, Normal S2, No murmurs Abdomen: Bowel Sounds Present, Soft, Non Tender, Non-Distended Extremities: No clubbing, No cyanosis, No edema, Capillary Refill Less than 3 Seconds Skin: No rashes, No breakdown, - - Left chest wound VAC in place. Musculoskeletal: No Tenderness to Palpation of Joints or Extremities Neurological: Cranial nerves II-XII grossly intact, Neuro grossly intact Psych/Mental Status: Normal Affect, Appropriate Patient seen and examined prior to discharge. Physical assessment as noted above. Patient is stable for discharge with follow up recommendations as noted above. This patient was seen by BILL Matson under the supervision of Dr. Mora. - Physical Exam Vital Signs Temp Pulse Resp BP Pulse Ox 98.6 F 64 18 138/86 H 98 03/03/19 08:01 03/03/19 08:05 03/03/19 08:01 03/03/19 08:01 03/03/19 08:01 Oxygen Delivery Method Room Air Weight: 244 lb 14.937 oz Body Mass Index (BMI) 32.4 Intake and Output for Last 24 Hours 03/01/19 03/02/19 03/03/19 23:59 23:59 23:59 Intake Total 237 / 237 2045 / 2045 1600 / 1600 Balance 237 / 237 2045 / 2045 1600 / 1600 Microbiology Past 72 Hours 02/28/19 Unknown Gram Stain - Final Tissue - Chest Wound Culture - Final No growth aerobically. Anaerobic Culture - Preliminary Checking for anaerobes, further studies to follow. 02/27/19 17:40 Gram Stain - Final Wound Abcess - Chest Wound Culture - Final No growth aerobically. Anaerobic Culture - Preliminary Checking for anaerobes, further studies to follow. Discharge Diet: No Restrictions Discharge Activity: Return to Normal Activity Call your doctor if you observe: Fever of 101 or Higher, Uncontrolled pain Home Medications: Medications to take at Discharge Ibuprofen 800 mg PO PRN PRN 02/27/19 Amox/Clavulanate Tablet [Augmentin Tablet] 875 mg PO Q12H #10 tablet 03/03/19 Diazepam [Valium] 5 mg PO 4X/DAY PRN PRN #30 tab 03/03/19 Oxycodone [Oxyir] 10 mg PO Q4H PRN PRN 5 Days #30 tablet 03/03/19 Following Prescrptions Were Given to Patient: Oxycodone [Oxyir] 10 mg PO Q4H PRN PRN 5 Days #30 tablet PRN Reason: Pain Amox/Clavulanate Tablet [Augmentin Tablet] 875 mg PO Q12H #10 tablet Diazepam [Valium] 5 mg PO 4X/DAY PRN PRN #30 tab PRN Reason: Spasms Primary Care Physician: Care Physician,No Primary [Primary Care Provider] - Please follow up with your Primary Care Physician in: 1 Week Please Follow Up With: Wound Center - Dr. Josue When: 1 Week Disposition: Home with Home Health Minutes spent on discharge:: 35 Patient Condition:: Stable Medical Necessity - Tobacco Use Smoking Status: Never smoker Tobacco Use: Non-smoker Meaningful Use Info Meaningful Use Diagnoses (Choose all that apply): None applicable <Daren Mora - Last Filed: 03/03/19 15:34> Hospital Course and Treatment Consultations 03/03/19 07:33 Consult: Onc/Wound/veterinary epidemiologist Routine Comment: Reason for Consult:: VAC left chest Summary of Care Provided: This patient was seen in conjunction with Lourdes SR. I have independently interviewed and examined the patient and reviewed pertinent history, examination findings, laboratory and plan of management. I have reviewed the note and agree with the documented findings with the few additional points. In brief, patient is admitted for left chest wall abscess with cellulitis who failed outpatient treatment with amoxicillin. CT chest was done which showed features of abscess in left anterior chest wall with subcutaneous edema. Incision and drainage was done culture showed no growth. Leukocytosis resolved. Patient was on IV Unasyn during admission. Wound VAC was placed today. Patient has been discharged on Augmentin. Follow-up has been set up with Dr. Josue. I have discussed my assessment with Lourdes SR and orders have been reviewed. [] Subjective: Patient is sitting in the chair. Patient had wound VAC placed in the left chest wall wound abscess for which excision was done by Dr. Josue. Fever/chills. Patient was seen and wound VAC was placed and dressing done by Cristy. - Physical Exam General: Alert, Oriented x3, Cooperative HEENT: Atraumatic, PERRLA, EOMI, Normocephalic Neck: Supple, No JVD, Negative Carotid Bruits Lungs: Clear to auscultation, Normal air movement Cardiovascular: Regular rate, Regular Rhythm, Normal S1, Normal S2, No murmurs Abdomen: Bowel Sounds Present, Soft, Non Tender, Non-Distended Extremities: No edema, Capillary Refill Less than 3 Seconds Skin: Ulcer/ Wound - Wound VAC in place in left chest wall. No surrounding erythema, induration or tenderness. Dressing is dry. Musculoskeletal: No Tenderness to Palpation of Joints or Extremities Neurological: Cranial nerves II-XII grossly intact Psych/Mental Status: Normal Affect, Appropriate Vital Signs Temp Pulse Resp BP Pulse Ox 98.6 F 64 18 138/86 H 98 03/03/19 08:01 03/03/19 08:05 03/03/19 08:01 03/03/19 08:01 03/03/19 08:01 Oxygen Delivery Method Room Air Weight: 244 lb 14.937 oz Body Mass Index (BMI) 32.4 Intake and Output for Last 24 Hours 03/01/19 03/02/19 03/03/19 23:59 23:59 23:59 Intake Total 237 / 237 2045 / 2045 1600 / 1600 Balance 237 / 237 2045 / 2045 1600 / 1600 Microbiology Past 72 Hours 02/28/19 Unknown Gram Stain - Final Tissue - Chest Wound Culture - Final No growth aerobically. Anaerobic Culture - Preliminary Checking for anaerobes, further studies to follow. 02/27/19 17:40 Gram Stain - Final Wound Abcess - Chest Wound Culture - Final No growth aerobically. Anaerobic Culture - Preliminary Checking for anaerobes, further studies to follow. Code Visit Inpatient E&M: [id number] Disch Hosp
[2019-03-03 15:35] VITALS: BP 147/94; PULSE 59; RESP 18; TEMP 36.8; O2SAT 100
== END 2019-03-03 15:52 | disposition home health service (06) | DRG 501 ==
LOC: ED 16:35 → MS3 18:12
PROVIDERS: Surgery; Admitting Provider Internal Medicine; Emergency Provider Emergency Medicine; Referring Provider Internal Medicine; Visit Provider Internal Medicine
PROC: (CPT 15002; principal; 2019-02-28 13:00)
DX: M60.08 Infective myositis, other site (principal); L03.313 Cellulitis of chest wall; L02.213 Cutaneous abscess of chest wall
CPT/HCPCS: 15002; 36415; 71250; 80048; 84134; 85025; 85027; 87070; 87075; 87076; 87081; 87102; 87205; 87206; 87640; 88304; 88305; 96365; 96366; 96367; 96375; 99218; 99284; J7040; A4216; G0378; J0295; J2405

== ENCOUNTER 2019-03-05 20:05 | Emergency (ER) | payer OTHER, SELFPAY ==
[2019-03-03 15:14] VITALS: BMI 32.3
[2019-03-05 20:07] VITALS: BP 155/85; PULSE 83; RESP 18; TEMP 37.2; O2SAT 98; BMI 33.2
--- NOTE | 2019-03-05 20:11 | RAD_ITS ---
STUDY: X-RAY - LEFT FOOT CLINICAL: Male, 38 years old. Pain and swelling TECHNIQUE: 3 view(s) of the foot. COMPARISON: None. FINDINGS: Normal talus, calcaneus, and tarsal bones. Normal visualized subtalar, talonavicular, calcaneocuboid, tarsal and tarsometatarsal articulations. Normal metatarsi. Normal metatarsophalangeal joint of the great toe. Normal tibial and fibular sesamoid bones. Normal interphalangeal joint of the great toe. Normal phalanges of the great toe. Normal second through fifth metatarsophalangeal joints. Normal interphalangeal joints and phalanges of the lesser toes. The soft tissue structures are unremarkable. RAD/Foot min 3 Views IMPRESSION: Normal x-ray examination of the foot. Electronically Signed: Hakeem Severino MD at 20:41 EDT , Service support ,
--- NOTE | 2019-03-05 20:17 | RAD_ITS ---
STUDY: X-RAY - LEFT ANKLE REASON FOR EXAM: Male, 38 years old. Pain and swelling TECHNIQUE: 3 view(s) of the ankle. COMPARISON: None. FINDINGS: Normal visualized distal tibia and fibula. Normal medial and lateral malleoli. Normal tibiotalar articulation and ankle mortise. Normal visualized talus and calcaneus. The visualized subtalar, talonavicular, calcaneocuboid and tarsal articulations are normal. The soft tissue structures are unremarkable. RAD/Ankle min 3 Views IMPRESSION: Normal x-ray examination of the ankle. Electronically Signed: Hakeem Severino MD at 20:41 EDT , Service support ,
--- NOTE | 2019-03-05 21:33 | US_ITS ---
STUDY: VENOUS DOPPLER ULTRASOUND - LEFT LOWER EXTREMITY REASON FOR EXAM: Male, 38 years old. Left ankle swelling x1 day TECHNIQUE: Ultrasound evaluation of the deep vein system to include ni-scale imaging and compression was performed. Ni-scale imaging and Doppler sonographic evaluation, including duplex spectral analysis and qualitative color flow sonography, was performed. COMPARISON: None. FINDINGS: Common Femoral Vein: Normal compression, spontaneity and augmentation. Normal color Doppler. Common Femoral Vein/Greater Saphenous Junction: Normal compression. Femoral Proximal: Normal compression, spontaneity and augmentation. Present color Doppler. Femoral Middle: Normal compression, spontaneity and augmentation. Femoral Distal: Normal compression, spontaneity and augmentation. Popliteal Vein: Normal compression, spontaneity and augmentation. Normal color Doppler. Posterior Tibial Vein: Normal compression. Peroneal Vein: Normal compression. US/Venous Duplex Imag/Limited/Uni IMPRESSION: Normal venous Doppler ultrasound of the lower extremity. Electronically Signed: Pam Ng MD at 23:18 EDT , Service support ,
--- NOTE | 2019-03-05 22:01 | ED.VISSUMM ---
- ER Visit Summary Date of Service: 03/05/19 Chief Complaint: Ankle swelling History of Present Illness: The patient is a 38 M with left ankle swelling. The swelling is over his lateral malleolus. This came on gradually. Associated with redness and warmth. No injury. No history of this. Normal range of motion. Pain worse with weightbearing. Patient is taking Augmentin for a chest infection. He is also taking naproxen for this. He was sent because of a concern for a blood clot. Physical Examination: Afebrile and vital signs are unremarkable. Alert and oriented. Breathing comfortably. Heart regular. Left ankle shows swelling and erythema at his lateral malleolus. Skin is intact. Good range of motion. Neurovascular intact distally. Good strength and sensation. Calf soft and supple. Test Results: X-rays negative. Ultrasound negative. Emergency Department Course and Treatment: X-rays were ordered by nursing. These were unremarkable. I have no suspicion for gout or septic arthropathy. This seems to be localized to the soft tissue. I was concerned for infection or inflammation. Family was concerned for DVT. Ultrasound was unremarkable. Will add Bactrim. Continue Augmentin. Continue anti-inflammatories. Patient declined Aircast and crutches. Return for new or worsening issues. Treatment Plan: As above Disposition: Discharge Impression: 1. Left ankle pain This note was generated with [employer] dictation software. It may contain incorrect words, spelling, and punctuation that were not noted in review of the chart prior to signing ED Disposition - Plan for ED Patient: Referrals: Care Physician,No Primary [Primary Care Provider] -
--- NOTE | 2019-03-05 22:03 | ED.DEP ---
ED Disposition - Plan for ED Patient: Instructions: Foot and Ankle Exercises: Ankle Circles Prescriptions: Smz/Tmp Ds [Bactrim Ds] 1 tab PO BID #14 tab Referrals: Care Physician,No Primary [Primary Care Provider] -
[2019-03-05] MEDS: Smz/Tmp Ds Tablet 1 TABLET PO (22:19)
[2019-03-05 22:20] VITALS: RESP 18
== END 2019-03-05 22:23 | disposition home or self-care (01) ==
LOC: ED 22:17
PROVIDERS: Emergency Provider Emergency Medicine
DX: M25.572 Pain in left ankle and joints of left foot (principal)
CPT/HCPCS: 73610; 73630; 93971; 99283

== ENCOUNTER 2019-03-17 08:30 | Outpatient (RCR) | payer OTHER, SELFPAY ==
[2019-03-03 15:14] VITALS: BMI 32.3
[2019-03-10 09:23] VITALS: BP 147/75; PULSE 67; RESP 16; TEMP 36.1; BMI 33.2
--- NOTE | 2019-03-10 13:03 | PCM.WC.HP ---
(1) Open wound of left chest wall with complication Status: Acute Code(s): S21.102A - Unspecified open wound of left front wall of thorax without penetration into thoracic cavity, initial encounter Comment: left chest wall abscess (2) Chest wall abscess Status: Acute Code(s): L02.213 - Cutaneous abscess of chest wall Comment: left chest wall abscess (3) Cellulitis of chest wall Status: Acute Code(s): L03.313 - Cellulitis of chest wall (4) Cellulitis of right ankle Status: Acute Code(s): L03.115 - Cellulitis of right lower limb History of Present Illness Date of Service: 03/10/19 Chief Complaint: Left chest wall abscess History of Wound: On 02/28/19 he had a surgical preparation left chest wall with incision and drainage and excisional debridement abscess involving chest wall muscles (16.5 cm2). His wound culture from surgery grew Anaerobic cocci. He was sent home on Augmentin and a wound VAC. He went to the ED on 03/05/19 for left ankle pain and swelling. His ankle x-ray was negative and the ultrasound was negative for a DVT. They suspected cellulitis and placed him on Bactrim for the cellulitis. Past Medical History Surgical History: - - Right hip replacement, hernia repair, tonsillectomy. Allergies/Adverse Reactions: Allergies No Known Allergies Allergy (Verified 03/05/19 20:10) Home Medications: Ambulatory Orders Medication Instructions Recorded Ibuprofen 800 mg PO PRN PRN 02/27/19 Amox/Clavulanate Tablet [Augmentin 875 mg PO Q12H #10 tablet 03/03/19 Tablet] Diazepam [Valium] 5 mg PO 4X/DAY PRN PRN #30 tab 03/03/19 Smz/Tmp Ds [Bactrim Ds] 1 tab PO BID #14 tab 03/05/19 - Family History Maternal - Paternal High Cholesterol, Heart Disease - open heart, Hypertension Smoking Status: Never smoker Review of Systems Constitutional: Denies: Chills, Fever, Weight Change Eyes: Denies: Pain, Vision Change HEENT: Denies: Difficulty Hearing, Difficulty Swallowing, Sinus Congestion Cardiovascular: Denies: Chest Pain Respiratory: Denies: Cough, Shortness of Breath Gastrointestinal: Denies: Diarrhea, Nausea, Vomiting Musculoskeletal: Reports: - - left ankle pain Skin: Reports: Wounds - left lower chest wound Neurological: Denies: Balance problems, Change in Speech, Incoordination Psychiatric: Denies: Anxiety - Physical Exam Vital Signs Temp Pulse Resp BP 96.9 F L 67 16 147/75 H 03/10/19 09:23 03/10/19 09:23 03/10/19 09:23 03/10/19 09:23 General: Alert, Oriented x3, Cooperative HEENT: Atraumatic Oral: Moist Mucosa Neck: Supple Lungs: Clear to auscultation, Normal air movement Cardiovascular: Regular rate, Regular Rhythm Abdomen: Bowel Sounds Present, Soft, Non Tender Extremities: Capillary Refill Less than 3 Seconds, Edema - Left ankle has +1 non pitting edema, Peripheral Pulses Normal, Tenderness - left ankle tenderness Skin: Ulcer/ Wound - left lower chest wound Wound Measurements and Assessment WC - Nurse 1 - General Ulcer Measurement Start: 03/10/19 09:23 Freq: Status: Active Protocol: Activity Type Activity Date Activity User E-Sign Co-Sign Detail Recorded Client Recorded Date Recorded By Document 03/10/19 09:23 MW [id number] 03/10/19 09:43 MW 03/10/19 09:23 Wound Center Nurse 1 [Ulcer Assessment] #1 L Chest -Current Size (cm) - Length 2.5 -Current Size (cm) - Width 5.4 -Current Size (cm) - Depth 3.2 -Total Square Cm 13.50 -Photo Taken Yes -Classification - Thickness Full Thickness without Exposed Support Structure -Exudate Amt Medium -Exudate Type Serosanguineous -Wound Margin Distinct, Outline Attached -Granulation Amt Large (67-100%) -Granulation Quality Red -Necrosis Amt Small (1-33%) -Necrotic Tissue Type Adherent Slough -Structure Exposed N/A -Texture (Radha-wound Skin Appearance) Scarring -Moisture (Radha-wound Skin Appearance No Abnormality ) -Color (Radha-wound Skin Appearance) No Abnormality -Temperature (Radha-wound Skin No Abnormality Appearance) (Pt Warm) -Tenderness on Palpation (Radha-wound No Skin Appearance) -Ulcer Cleansing Wound Cleanser -Foul Odor after Cleansing No -Anesthetic Used 4% Lidocaine Solution 5% Lidocaine Gel WC - Nurse 2 - General Ulcer CM Notes Start: 03/10/19 09:23 Freq: Status: Active Protocol: Activity Type Activity Date Activity User E-Sign Co-Sign Detail Recorded Client Recorded Date Recorded By Document 03/10/19 10:21 JF [id number] 03/10/19 10:22 JF 03/10/19 10:21 Wound Center Nurse 2 [Procedure/Treatment] -Time 10:22 -Correct Patient Yes -Correct Side, Site, Position Yes -Correct Procedure Yes -Procedure Performed Yes -Type of Procedure Debridement -Clinical Debridement Subcutaneous -Post Debridement Size (cm) - Length 2.5 -Post Debridement Size (cm) - Width 5.7 -Post Debridement Size (cm) - Depth 3.0 -Total Square Cm 14.25 -Wound/Ulcer Outcome Not Healed -Ulcer Cleansing Rinsed/ Irrigated with Saline -Foul Odor after Cleansing No -Bioengineered Tissue No -Bleeding Controlled with Pressure -Offloading No -Treatment Response Procedure Tolerated Well [See Physician Procedure note for Specifics] Pain Scale: 0-10 Numeric [Pain] -Is Patient Pain Free? Yes Musculoskeletal: No Tenderness to Palpation of Joints or Extremities Neurological: Neuro grossly intact Psych/Mental Status: Normal Affect, Appropriate Debridement Note Post-Debridement Measurements/Treatment WC - Nurse 2 - General Ulcer CM Notes Start: 03/10/19 09:23 Freq: Status: Active Protocol: Activity Type Activity Date Activity User E-Sign Co-Sign Detail Recorded Client Recorded Date Recorded By Document 03/10/19 10:21 JF [id number] 03/10/19 10:22 03/10/19 10:21 Wound Center Nurse 2 #1 L Chest -Time 10:22 -Correct Patient Yes -Correct Side, Site, Position Yes -Correct Procedure Yes -Procedure Performed Yes -Type of Procedure Debridement -Clinical Debridement Subcutaneous -Post Debridement Size (cm) - Length 2.5 -Post Debridement Size (cm) - Width 5.7 -Post Debridement Size (cm) - Depth 3.0 -Total Square Cm 14.25 -Wound/Ulcer Outcome Not Healed -Ulcer Cleansing Rinsed/ Irrigated with Saline -Foul Odor after Cleansing No -Bioengineered Tissue No -Bleeding Controlled with Pressure -Offloading No -Treatment Response Procedure Tolerated Well Pain Scale: 0-10 Numeric Is Patient Pain Free? Yes Wound debrided: Left lower chest wound Laterality: Left Type of Debridement: Excisional debridement Anesthesia Used: 4% Lidocaine Solution Depth: Down to and including healthy tissue, in the subcutaneous layer Percentage of wound debrided: 100 Instrument Used: 7mm curette Tissue Removed: Subcutaneous tissue and slough Severity: Fat Layer Exposed Amount of bleeding with debridement: Mild Bleeding Controlled with: Pressure Patient tolerated procedure well Assessment/Plan Assessment: 1. Open wound of left chest wall with complication left chest wall abscess. 2. Chest wall abscess left chest wall abscess. 3. Cellulitis of chest wall. 4. Cellulitis of right ankle Plan: Patient was seen and evaluated at the wound healing center today. A subcutaneous debridement was peformed. Patient tolerated the procedure well. Wound care to the left chest will continue the wound VAC to 150 mmHg. He will continue the Augmentin for the Anaerobic cocci from his surgical cultures. He was seen in the ED on 03/05/19 for left ankle pain and was started on Bactrim for cellulitis . His ankle xray and ultrasound were negative. Encouraged him to try wearing an SHAI wrap to help support the ankle and help with compression. He will finish the bactrim tomorrow. Encouraged him to increase his protein intake. Follow up in one week. Renewed his Augmentin, refilled his percocet (20) and valium (21). Code Visit [id number]
[2019-03-17 08:34] VITALS: BP 151/102; PULSE 101; RESP 20; TEMP 36.2; BMI 33.2
--- NOTE | 2019-03-17 17:34 | PCM.WC.PN ---
Type of Wound Date of Service: 03/17/19 Chief Complaint: Open surgical abscess wound left chest wall. History of Wound: Surgery 02/28/19 - Surgical preparation left chest wall with incision and drainage and excisional debridement abscess involving chest wall muscles (16.5 cm2). Wound care - VAC. Operative culture - Anaerobic cocci. He as placed on Augmentin. He was recently in the ED on 03/05/19 for some ankle cellulitis. He was placed on Bactrim and has finished them. Prealbumin from 03/01/19 was 27.2. Encourage nutritional supplementation with protein to help the healing process. CT Chest from 02/27/19 showed subcutaneous edema with fluid collection suggesting abscess in the left anterior chest wall.. Today he denies fever. His appetite is good. Progress of Wound: Improved. - Physical Exam Vital Signs Temp Pulse Resp BP 97.1 F L 101 H 20 H 151/102 H 03/17/19 08:34 03/17/19 08:34 03/17/19 08:34 03/17/19 08:34 Wound Measurements and Assessment WC - Nurse 1 - General Ulcer Measurement Start: 03/10/19 09:23 Freq: Status: Active Protocol: Activity Type Activity Date Activity User E-Sign Co-Sign Detail Recorded Client Recorded Date Recorded By Document 03/17/19 08:34 DL [id number] 03/17/19 08:46 DL 03/17/19 08:34 Wound Center Nurse 1 [Ulcer Assessment] #1 L Chest -Current Size (cm) - Length 1.5 -Current Size (cm) - Width 4.5 -Current Size (cm) - Depth 3.4 -Total Square Cm 6.75 -Photo Taken No -Exudate Amt Small -Exudate Type Serosanguineous -Wound Margin Distinct, Outline Attached -Granulation Amt Medium (34-66%) -Granulation Quality Red -Necrosis Amt Small (1-33%) -Necrotic Tissue Type Adherent Slough -Structure Exposed N/A -Texture (Radha-wound Skin Appearance) Localized Edema -Moisture (Radha-wound Skin Appearance No Abnormality ) -Color (Radha-wound Skin Appearance) Rubor -Temperature (Radha-wound Skin No Abnormality Appearance) (Pt Warm) -Tenderness on Palpation (Radha-wound No Skin Appearance) -Ulcer Cleansing Rinsed/ Irrigated with Saline -Foul Odor after Cleansing No -Anesthetic Used 4% Lidocaine Solution 5% Lidocaine Gel - Nurse 2 - General Ulcer CM Notes Start: 03/10/19 09:23 Freq: Status: Active Protocol: Activity Type Activity Date Activity User E-Sign Co-Sign Detail Recorded Client Recorded Date Recorded By Document 03/17/19 09:22 [id number] 03/17/19 09:26 03/17/19 09:22 Wound Center Nurse 2 [Procedure/Treatment] -Time 09:23 -Correct Patient Yes -Correct Side, Site, Position Yes -Correct Procedure Yes -Procedure Performed Yes -Type of Procedure Debridement -Clinical Debridement Subcutaneous -Post Debridement Size (cm) - Length 1.7 -Post Debridement Size (cm) - Width 5 -Post Debridement Size (cm) - Depth 3.0 -Total Square Cm 8.5 -Wound/Ulcer Outcome Not Healed -Ulcer Cleansing Rinsed/ Irrigated with Saline -Foul Odor after Cleansing No -Bioengineered Tissue No -Bleeding Controlled with Pressure -Offloading No -Treatment Response Procedure Tolerated Well [See Physician Procedure note for Specifics] Pain Scale: 0-10 Numeric [Pain] -Is Patient Pain Free? Yes Debridement Note Post-Debridement Measurements/Treatment - Nurse 2 - General Ulcer CM Notes Start: 03/10/19 09:23 Freq: Status: Active Protocol: Activity Type Activity Date Activity User E-Sign Co-Sign Detail Recorded Client Recorded Date Recorded By Document 03/10/19 10:21 [id number] 03/10/19 10:22 Document 03/17/19 09:22 [id number] 03/17/19 09:26 03/10/19 03/17/19 10:21 09:22 Wound Center Nurse 2 #1 L Chest -Time 10:22 09:23 -Correct Patient Yes Yes -Correct Side, Site, Position Yes Yes -Correct Procedure Yes Yes -Procedure Performed Yes Yes -Type of Procedure Debridement Debridement -Clinical Debridement Subcutaneous Subcutaneous -Post Debridement Size (cm) - Length 2.5 1.7 -Post Debridement Size (cm) - Width 5.7 5 -Post Debridement Size (cm) - Depth 3.0 3.0 -Total Square Cm 14.25 8.5 -Wound/Ulcer Outcome Not Healed Not Healed -Ulcer Cleansing Rinsed/ Rinsed/ Irrigated with Irrigated with Saline Saline -Foul Odor after Cleansing No No -Bioengineered Tissue No No -Bleeding Controlled with Pressure Pressure -Offloading No No -Treatment Response Procedure Procedure Tolerated Well Tolerated Well Pain Scale: 0-10 Numeric Is Patient Pain Free? Yes Yes Wound debrided: #1 Left chest wall. Laterality: Left Wound Grade/Stage: 3. Type of Debridement: Excisional debridement Anesthesia Used: 4% Lidocaine Solution Depth: Down to and including healthy tissue, in the subcutaneous layer Percentage of wound debrided: 100 Instrument Used: 5mm curette Tissue Removed: subcutaneous tissue. Severity: Fat Layer Exposed Amount of bleeding with debridement: Mild Bleeding Controlled with: Pressure Patient tolerated procedure well Assessment/Plan Assessment: 1. Open surgical abscess wound left chest wall. 2. Abscess left chest wall. 3. s/p surgical preparation left chest wall with incision and drainage and excisional debridement abscess involving chest wall muscles (16.5 cm2). Plan: Continue the wound VAC at 150 mmHg continuous suction. Continue Augmentin for the operative culture that showed Anaerobic cocci. He was seen in the ED on 03/05/19 for left ankle pain and was started on Bactrim for suspected cellulitis and is finishing them. His ankle xray was negative. His Ultrasound was negative for clot. His Prealbumin from 03/01/19 was 27.2. Encouraged nutritional supplementation with protein to help the healing process. Follow up one week.
--- NOTE | 2019-03-18 17:35 | PN.PCM_ITS ---
Type of Wound Date of Service: 03/17/19 Chief Complaint: Open surgical abscess wound left chest wall. History of Wound: Surgery 02/28/19 - Surgical preparation left chest wall with incision and drainage and excisional debridement abscess involving chest wall muscles (16.5 cm2). Wound care - VAC. Operative culture - Anaerobic cocci. He as placed on Augmentin. He was recently in the ED on 03/05/19 for some ankle cellulitis. He was placed on Bactrim and has finished them. Prealbumin from 03/01/19 was 27.2. Encourage nutritional supplementation with protein to help the healing process. CT Chest from 02/27/19 showed subcutaneous edema with fluid collection suggesting abscess in the left anterior chest wall.. Today he denies fever. His appetite is good. Progress of Wound: Improved. - Physical Exam Vital Signs Temp Pulse Resp BP 97.1 F L 101 H 20 H 151/102 H 03/17/19 08:34 03/17/19 08:34 03/17/19 08:34 03/17/19 08:34 Wound Measurements and Assessment WC - Nurse 1 - General Ulcer Measurement Start: 03/10/19 09:23 Freq: Status: Active Protocol: Activity Type Activity Date Activity User E-Sign Co-Sign Detail Recorded Client Recorded Date Recorded By Document 03/17/19 08:34 DL [id number] 03/17/19 08:46 DL 03/17/19 08:34 Wound Center Nurse 1 [Ulcer Assessment] #1 L Chest -Current Size (cm) - Length 1.5 -Current Size (cm) - Width 4.5 -Current Size (cm) - Depth 3.4 -Total Square Cm 6.75 -Photo Taken No -Exudate Amt Small -Exudate Type Serosanguineous -Wound Margin Distinct, Outline Attached -Granulation Amt Medium (34-66%) -Granulation Quality Red -Necrosis Amt Small (1-33%) -Necrotic Tissue Type Adherent Slough -Structure Exposed N/A -Texture (Radha-wound Skin Appearance) Localized Edema -Moisture (Radha-wound Skin Appearance No Abnormality ) -Color (Radha-wound Skin Appearance) Rubor -Temperature (Radha-wound Skin No Abnormality Appearance) (Pt Warm) -Tenderness on Palpation (Radha-wound No Skin Appearance) -Ulcer Cleansing Rinsed/ Irrigated with Saline -Foul Odor after Cleansing No -Anesthetic Used 4% Lidocaine Solution 5% Lidocaine Gel - Nurse 2 - General Ulcer CM Notes Start: 03/10/19 09:23 Freq: Status: Active Protocol: Activity Type Activity Date Activity User E-Sign Co-Sign Detail Recorded Client Recorded Date Recorded By Document 03/17/19 09:22 [id number] 03/17/19 09:26 03/17/19 09:22 Wound Center Nurse 2 [Procedure/Treatment] -Time 09:23 -Correct Patient Yes -Correct Side, Site, Position Yes -Correct Procedure Yes -Procedure Performed Yes -Type of Procedure Debridement -Clinical Debridement Subcutaneous -Post Debridement Size (cm) - Length 1.7 -Post Debridement Size (cm) - Width 5 -Post Debridement Size (cm) - Depth 3.0 -Total Square Cm 8.5 -Wound/Ulcer Outcome Not Healed -Ulcer Cleansing Rinsed/ Irrigated with Saline -Foul Odor after Cleansing No -Bioengineered Tissue No -Bleeding Controlled with Pressure -Offloading No -Treatment Response Procedure Tolerated Well [See Physician Procedure note for Specifics] Pain Scale: 0-10 Numeric [Pain] -Is Patient Pain Free? Yes Debridement Note Post-Debridement Measurements/Treatment - Nurse 2 - General Ulcer CM Notes Start: 03/10/19 09:23 Freq: Status: Active Protocol: Activity Type Activity Date Activity User E-Sign Co-Sign Detail Recorded Client Recorded Date Recorded By Document 03/10/19 10:21 [id number] 03/10/19 10:22 Document 03/17/19 09:22 [id number] 03/17/19 09:26 03/10/19 03/17/19 10:21 09:22 Wound Center Nurse 2 #1 L Chest -Time 10:22 09:23 -Correct Patient Yes Yes -Correct Side, Site, Position Yes Yes -Correct Procedure Yes Yes -Procedure Performed Yes Yes -Type of Procedure Debridement Debridement -Clinical Debridement Subcutaneous Subcutaneous -Post Debridement Size (cm) - Length 2.5 1.7 -Post Debridement Size (cm) - Width 5.7 5 -Post Debridement Size (cm) - Depth 3.0 3.0 -Total Square Cm 14.25 8.5 -Wound/Ulcer Outcome Not Healed Not Healed -Ulcer Cleansing Rinsed/ Rinsed/ Irrigated with Irrigated with Saline Saline -Foul Odor after Cleansing No No -Bioengineered Tissue No No -Bleeding Controlled with Pressure Pressure -Offloading No No -Treatment Response Procedure Procedure Tolerated Well Tolerated Well Pain Scale: 0-10 Numeric Is Patient Pain Free? Yes Yes Wound debrided: #1 Left chest wall. Laterality: Left Wound Grade/Stage: 3. Type of Debridement: Excisional debridement Anesthesia Used: 4% Lidocaine Solution Depth: Down to and including healthy tissue, in the subcutaneous layer Percentage of wound debrided: 100 Instrument Used: 5mm curette Tissue Removed: subcutaneous tissue. Severity: Fat Layer Exposed Amount of bleeding with debridement: Mild Bleeding Controlled with: Pressure Patient tolerated procedure well Assessment/Plan Assessment: 1. Open surgical abscess wound left chest wall. 2. Abscess left chest wall. 3. s/p surgical preparation left chest wall with incision and drainage and excisional debridement abscess involving chest wall muscles (16.5 cm2). Plan: Continue the wound VAC at 150 mmHg continuous suction. Continue Augmentin for the operative culture that showed Anaerobic cocci. He was seen in the ED on 03/05/19 for left ankle pain and was started on Bactrim for suspected cellulitis and is finishing them. His ankle xray was negative. His Ultrasound was negative for clot. His Prealbumin from 03/01/19 was 27.2. Encouraged nutritional supplementation with protein to help the healing process. Follow up one week.
== END 2019-03-18 23:59 ==
LOC: WC 08:30
PROVIDERS: Visit Provider Nurse Practitioner Family
DX: L02.213 Cutaneous abscess of chest wall (principal); L03.313 Cellulitis of chest wall; L03.115 Cellulitis of right lower limb; Y83.9 Surgical procedure, unspecified as the cause of abnormal reaction of the patient, or of later complication, without mention of misadventure at the time of the procedure; S21.102A Unspecified open wound of left front wall of thorax without penetration into thoracic cavity, initial encounter; T81.89XA Other complications of procedures, not elsewhere classified, initial encounter
CPT/HCPCS: 11042; 97605; 99213; G0463

== ENCOUNTER 2019-04-15 13:00 | Outpatient (RCR) | payer OTHER, SELFPAY ==
[2019-03-19 01:52] VITALS: BP 151/102; PULSE 101; RESP 20; TEMP 36.2
[2019-03-24 08:39] VITALS: BP 140/81; PULSE 72; RESP 18; TEMP 36.4; BMI 33.2
--- NOTE | 2019-03-24 16:27 | PCM.WC.PN ---
(1) Open wound of left chest wall with complication Status: Acute Code(s): S21.102A - Unspecified open wound of left front wall of thorax without penetration into thoracic cavity, initial encounter Comment: left chest wall abscess (2) Chest wall abscess Status: Acute Code(s): L02.213 - Cutaneous abscess of chest wall Comment: left chest wall abscess (3) Cellulitis of chest wall Status: Acute Code(s): L03.313 - Cellulitis of chest wall Type of Wound Date of Service: 03/24/19 Chief Complaint: Left chest wall abscess History of Wound: On 02/28/19 he had a surgical preparation left chest wall with incision and drainage and excisional debridement abscess involving chest wall muscles (16.5 cm2). His wound culture from surgery grew Anaerobic cocci. He was sent home on Augmentin and a wound VAC. He went to the ED on 03/05/19 for left ankle pain and swelling. His ankle x-ray was negative and the ultrasound was negative for a DVT. They suspected cellulitis and placed him on Bactrim for the cellulitis. Progress of Wound: Improved. - Physical Exam Vital Signs Temp Pulse Resp BP 97.5 F L 72 18 140/81 H 03/24/19 08:39 03/24/19 08:39 03/24/19 08:39 03/24/19 08:39 General: Alert, Oriented x3, Cooperative HEENT: Atraumatic Oral: Moist Mucosa Lungs: Normal air movement Cardiovascular: Regular rate Extremities: No edema, Capillary Refill Less than 3 Seconds, - - Left ankle is no longer swollen Skin: Ulcer/ Wound Wound Measurements and Assessment WC - Nurse 1 - General Ulcer Measurement Start: 03/24/19 08:39 Freq: Status: Active Protocol: Activity Type Activity Date Activity User E-Sign Co-Sign Detail Recorded Client Recorded Date Recorded By Document 03/24/19 08:39 DL [id number] 03/24/19 08:50 DL 03/24/19 08:39 Wound Center Nurse 1 [Ulcer Assessment] #1 L Chest -Current Size (cm) - Length 1.5 -Current Size (cm) - Width 3.5 -Current Size (cm) - Depth 3.3 -Total Square Cm 5.25 -Photo Taken No -Exudate Amt Small -Exudate Type Serosanguineous -Wound Margin Distinct, Outline Attached -Granulation Amt Large (67-100%) -Granulation Quality Red -Necrosis Amt Small (1-33%) -Necrotic Tissue Type Adherent Slough -Structure Exposed N/A -Texture (Radha-wound Skin Appearance) Excoriation Scarring -Moisture (Radha-wound Skin Appearance No Abnormality ) -Color (Radha-wound Skin Appearance) No Abnormality -Temperature (Radha-wound Skin No Abnormality Appearance) (Pt Warm) -Tenderness on Palpation (Radha-wound No Skin Appearance) -Ulcer Cleansing Rinsed/ Irrigated with Saline -Foul Odor after Cleansing No -Anesthetic Used 4% Lidocaine Solution 5% Lidocaine Gel - Nurse 2 - General Ulcer CM Notes Start: 03/24/19 08:39 Freq: Status: Active Protocol: Activity Type Activity Date Activity User E-Sign Co-Sign Detail Recorded Client Recorded Date Recorded By Document 03/24/19 09:06 [id number] [id number] 03/24/19 09:11 03/24/19 09:06 Wound Center Nurse 2 [Procedure/Treatment] -Time 09:06 -Correct Patient Yes -Correct Side, Site, Position Yes -Correct Procedure Yes -Procedure Performed Yes -Type of Procedure Debridement -Clinical Debridement Subcutaneous -Post Debridement Size (cm) - Length 1.7 -Post Debridement Size (cm) - Width 4.5 -Post Debridement Size (cm) - Depth 3.0 -Total Square Cm 7.65 -Wound/Ulcer Outcome Not Healed -Ulcer Cleansing Rinsed/ Irrigated with Saline -Foul Odor after Cleansing No -Bioengineered Tissue No -Bleeding Controlled with Pressure -Offloading No -Treatment Response Procedure Tolerated Well [See Physician Procedure note for Specifics] Pain Scale: 0-10 Numeric [Pain] -Is Patient Pain Free? Yes Musculoskeletal: No Tenderness to Palpation of Joints or Extremities Neurological: Neuro grossly intact Psych/Mental Status: Normal Affect, Appropriate Debridement Note Post-Debridement Measurements/Treatment - Nurse 2 - General Ulcer CM Notes Start: 03/24/19 08:39 Freq: Status: Active Protocol: Activity Type Activity Date Activity User E-Sign Co-Sign Detail Recorded Client Recorded Date Recorded By Document 03/24/19 09:06 [id number] [id number] 03/24/19 09:11 03/24/19 09:06 Wound Center Nurse 2 #1 L Chest -Time 09:06 -Correct Patient Yes -Correct Side, Site, Position Yes -Correct Procedure Yes -Procedure Performed Yes -Type of Procedure Debridement -Clinical Debridement Subcutaneous -Post Debridement Size (cm) - Length 1.7 -Post Debridement Size (cm) - Width 4.5 -Post Debridement Size (cm) - Depth 3.0 -Total Square Cm 7.65 -Wound/Ulcer Outcome Not Healed -Ulcer Cleansing Rinsed/ Irrigated with Saline -Foul Odor after Cleansing No -Bioengineered Tissue No -Bleeding Controlled with Pressure -Offloading No -Treatment Response Procedure Tolerated Well Pain Scale: 0-10 Numeric Is Patient Pain Free? Yes Wound debrided: Left chest wound Laterality: Left Type of Debridement: Excisional debridement Anesthesia Used: 4% Lidocaine Solution Depth: Down to and including healthy tissue, in the subcutaneous layer Percentage of wound debrided: 100 Instrument Used: 7mm curette Tissue Removed: Subcutaneous tissue and slough Severity: Fat Layer Exposed Amount of bleeding with debridement: Mild Bleeding Controlled with: Pressure Patient tolerated procedure well Assessment/Plan Assessment: 1. Open wound of left chest wall with complication left chest wall abscess. 2. Chest wall abscess left chest wall abscess. 3. Cellulitis of chest wall. 4. Cellulitis of right ankle Plan: Patient was seen and evaluated at the wound healing center today. A subcutaneous debridement was peformed. Patient tolerated the procedure well. Wound care to the left chest. Will do a wound VAC holiday for one week. He will continue the Augmentin for the Anaerobic cocci from his surgical cultures. He was seen in the ED on 03/05/19 for left ankle pain and was started on Bactrim for cellulitis which he has finished . His ankle xray and ultrasound were negative. Left ankle pain has resolved. Encouraged him to increase his protein intake. Follow up in one week. Code Visit [id number]
[2019-03-31 08:21] VITALS: BP 135/89; PULSE 71; RESP 18; TEMP 37.2; BMI 33.2
--- NOTE | 2019-03-31 13:06 | PCM.WC.PN ---
Type of Wound Date of Service: 03/31/19 Chief Complaint: Open surgical abscess wound left chest wall. History of Wound: Surgery 02/28/19 - Surgical preparation left chest wall with incision and drainage and excisional debridement abscess involving chest wall muscles (16.5 cm2). Wound care - VAC. Operative culture - Anaerobic cocci. He as placed on Augmentin. He was recently in the ED on 03/05/19 for some ankle cellulitis. He was placed on Bactrim and has finished them. Prealbumin from 03/01/19 was 27.2. Encourage nutritional supplementation with protein to help the healing process. CT Chest from 02/27/19 showed subcutaneous edema with fluid collection suggesting abscess in the left anterior chest wall.. Today he denies fever. His appetite is good. Progress of Wound: Improved. - Physical Exam Vital Signs Temp Pulse Resp BP 98.9 F 71 18 135/89 H 03/31/19 08:21 03/31/19 08:21 03/31/19 08:21 03/31/19 08:21 Wound Measurements and Assessment WC - Nurse 1 - General Ulcer Measurement Start: 03/24/19 08:39 Freq: Status: Active Protocol: Activity Type Activity Date Activity User E-Sign Co-Sign Detail Recorded Client Recorded Date Recorded By Document 03/31/19 08:21 DL [id number] 03/31/19 08:29 DL 03/31/19 08:21 Wound Center Nurse 1 [Ulcer Assessment] #1 L Chest -Current Size (cm) - Length 0.8 -Current Size (cm) - Width 3.1 -Current Size (cm) - Depth 3.1 -Total Square Cm 2.48 -Photo Taken No -Undermining/Tunneling Starts (O' 1 clock) -Undermining/Tunneling Ends (O'clock) 4 -Maximum Distance (cm) 4.1 -Exudate Amt Small -Exudate Type Serosanguineous -Wound Margin Distinct, Outline Attached -Granulation Amt Medium (34-66%) -Granulation Quality Red -Necrosis Amt Small (1-33%) -Structure Exposed N/A -Texture (Radha-wound Skin Appearance) Scarring -Moisture (Radha-wound Skin Appearance No Abnormality ) -Color (Radha-wound Skin Appearance) No Abnormality -Temperature (Radha-wound Skin No Abnormality Appearance) (Pt Warm) -Tenderness on Palpation (Radha-wound No Skin Appearance) -Ulcer Cleansing Wound Cleanser -Foul Odor after Cleansing No -Anesthetic Used 4% Lidocaine Solution - Nurse 2 - General Ulcer CM Notes Start: 03/24/19 08:39 Freq: Status: Active Protocol: Activity Type Activity Date Activity User E-Sign Co-Sign Detail Recorded Client Recorded Date Recorded By Document 03/31/19 08:39 [id number] 03/31/19 08:42 03/31/19 08:39 Wound Center Nurse 2 [Procedure/Treatment] -Time 08:40 -Correct Patient Yes -Correct Side, Site, Position Yes -Correct Procedure Yes -Procedure Performed Yes -Type of Procedure Debridement -Clinical Debridement Subcutaneous -Post Debridement Size (cm) - Length 1.0 -Post Debridement Size (cm) - Width 3.1 -Post Debridement Size (cm) - Depth 3.1 -Total Square Cm 3.10 -Wound/Ulcer Outcome Not Healed -Ulcer Cleansing Rinsed/ Irrigated with Saline -Foul Odor after Cleansing No -Bioengineered Tissue No -Bleeding Controlled with Pressure -Offloading No -Treatment Response Procedure Tolerated Well [See Physician Procedure note for Specifics] Pain Scale: 0-10 Numeric [Pain] -Is Patient Pain Free? Yes Debridement Note Post-Debridement Measurements/Treatment - Nurse 2 - General Ulcer CM Notes Start: 03/24/19 08:39 Freq: Status: Active Protocol: Activity Type Activity Date Activity User E-Sign Co-Sign Detail Recorded Client Recorded Date Recorded By Document 03/24/19 09:06 [id number] 03/24/19 09:11 Document 03/31/19 08:39 [id number] 03/31/19 08:42 03/24/19 03/31/19 09:06 08:39 Wound Center Nurse 2 #1 L Chest -Time 09:06 08:40 -Correct Patient Yes Yes -Correct Side, Site, Position Yes Yes -Correct Procedure Yes Yes -Procedure Performed Yes Yes -Type of Procedure Debridement Debridement -Clinical Debridement Subcutaneous Subcutaneous -Post Debridement Size (cm) - Length 1.7 1.0 -Post Debridement Size (cm) - Width 4.5 3.1 -Post Debridement Size (cm) - Depth 3.0 3.1 -Total Square Cm 7.65 3.10 -Wound/Ulcer Outcome Not Healed Not Healed -Ulcer Cleansing Rinsed/ Rinsed/ Irrigated with Irrigated with Saline Saline -Foul Odor after Cleansing No No -Bioengineered Tissue No No -Bleeding Controlled with Pressure Pressure -Offloading No No -Treatment Response Procedure Procedure Tolerated Well Tolerated Well Pain Scale: 0-10 Numeric Is Patient Pain Free? Yes Yes Wound debrided: #1 Left chest wall. Laterality: Left Wound Grade/Stage: 3. Type of Debridement: Excisional debridement Anesthesia Used: 4% Lidocaine Solution Depth: Down to and including healthy tissue, in the subcutaneous layer Percentage of wound debrided: 100 Instrument Used: 7mm curette Tissue Removed: subcutaneous tissue. Severity: Fat Layer Exposed Amount of bleeding with debridement: Mild Bleeding Controlled with: Pressure Patient tolerated procedure well Assessment/Plan Assessment: 1. Open surgical abscess wound left chest wall. 2. Abscess left chest wall. 3. s/p surgical preparation left chest wall with incision and drainage and excisional debridement abscess involving chest wall muscles (16.5 cm2). Plan: Continue the wound VAC at 150 mmHg continuous suction. Continue Augmentin for the operative culture that showed Anaerobic cocci. He was seen in the ED on 03/05/19 for left ankle pain and was started on Bactrim for suspected cellulitis and has finished them. His ankle xray was negative. His Ultrasound was negative for clot. His Prealbumin from 03/01/19 was 27.2. Encouraged nutritional supplementation with protein to help the healing process. [place] is going to [place] next week for a school field trip. Renewed his Percocet for pain (30 tabs). Discussed further operative debridement and secondary wound closure. He will think about it and let me know. Follow up one week.
[2019-04-07 08:10] VITALS: BP 151/82; PULSE 72; RESP 18; TEMP 36.3; BMI 33.2
--- NOTE | 2019-04-07 20:02 | PCM.WC.PN ---
Type of Wound Date of Service: 04/07/19 Chief Complaint: Nonhealing abscess ulcer left chest wall. History of Wound: Surgery 02/28/19 - Surgical preparation left chest wall with incision and drainage and excisional debridement abscess involving chest wall muscles (16.5 cm2). Wound care - VAC. Operative culture - Anaerobic cocci. He was placed on Augmentin. Prealbumin from 03/01/19 was 27.2. Encourage nutritional supplementation with protein to help the healing process. CT Chest from 02/27/19 showed subcutaneous edema with fluid collection suggesting abscess in the left anterior chest wall. Today he denies fever. His appetite is good. In a couple of days, he is going to [facility] for a school field trip so he will put the VAC on hold and do Aquacel Silver dressing changes daily until he returns on the weekend. Progress of Wound: Improved. - Physical Exam Vital Signs Temp Pulse Resp BP 97.3 F L 72 18 151/82 H 04/07/19 08:10 04/07/19 08:10 04/07/19 08:10 04/07/19 08:10 Wound Measurements and Assessment WC - Nurse 1 - General Ulcer Measurement Start: 03/24/19 08:39 Freq: Status: Active Protocol: Activity Type Activity Date Activity User E-Sign Co-Sign Detail Recorded Client Recorded Date Recorded By Document 04/07/19 08:10 AN [id number] 04/07/19 08:25 AN 04/07/19 08:10 Wound Center Nurse 1 [Ulcer Assessment] #1 L Chest -Current Size (cm) - Length 0.8 -Current Size (cm) - Width 1.4 -Current Size (cm) - Depth 2.5 -Total Square Cm 1.12 -Photo Taken No -Tunneling No -Undermining/Tunneling No -Classification - Thickness Full Thickness without Exposed Support Structure -Exudate Amt Small -Exudate Type Serosanguineous -Wound Margin Distinct, Outline Attached -Granulation Amt Large (67-100%) -Granulation Quality Red -Slough/Fibrin Yes -Necrosis Amt Small (1-33%) -Necrotic Tissue Type Adherent Slough -Structure Exposed None/Limited to Skin Breakdown -Texture (Radha-wound Skin Appearance) Assessed -Moisture (Radha-wound Skin Appearance Assessed ) Maceration -Color (Radha-wound Skin Appearance) Assessed -Temperature (Radha-wound Skin No Abnormality Appearance) (Pt Warm) -Tenderness on Palpation (Radha-wound Yes Skin Appearance) -Ulcer Cleansing Rinsed/ Irrigated with Saline -Foul Odor after Cleansing No -Anesthetic Used 4% Lidocaine Solution - Nurse 2 - General Ulcer CM Notes Start: 03/24/19 08:39 Freq: Status: Active Protocol: Activity Type Activity Date Activity User E-Sign Co-Sign Detail Recorded Client Recorded Date Recorded By Document 04/07/19 08:31 [id number] 04/07/19 08:37 04/07/19 08:31 Wound Center Nurse 2 [Procedure/Treatment] -Time 08:32 -Correct Patient Yes -Correct Side, Site, Position Yes -Correct Procedure Yes -Procedure Performed Yes -Type of Procedure Debridement -Clinical Debridement Subcutaneous -Post Debridement Size (cm) - Length 0.7 -Post Debridement Size (cm) - Width 2.0 -Post Debridement Size (cm) - Depth 2.5 -Total Square Cm 1.40 -Wound/Ulcer Outcome Not Healed -Ulcer Cleansing Rinsed/ Irrigated with Saline -Foul Odor after Cleansing No -Bioengineered Tissue No -Bleeding Controlled with Pressure -Other underminin. 0cm 11-3:00 -Offloading No -Treatment Response Procedure Tolerated Well [See Physician Procedure note for Specifics] Pain Scale: 0-10 Numeric [Pain] -Is Patient Pain Free? Yes Debridement Note Post-Debridement Measurements/Treatment - Nurse 2 - General Ulcer CM Notes Start: 03/24/19 08:39 Freq: Status: Active Protocol: Activity Type Activity Date Activity User E-Sign Co-Sign Detail Recorded Client Recorded Date Recorded By Document 03/24/19 09:06 [id number] 03/24/19 09:11 Document 03/31/19 08:39 [id number] 03/31/19 08:42 Document 04/07/19 08:31 [id number] 04/07/19 08:37 03/24/19 03/31/19 04/07/19 09:06 08:39 08:31 Wound Center Nurse 2 #1 L Chest -Time 09:06 08:40 08:32 -Correct Patient Yes Yes Yes -Correct Side, Site, Position Yes Yes Yes -Correct Procedure Yes Yes Yes -Procedure Performed Yes Yes Yes -Type of Procedure Debridement Debridement Debridement -Clinical Debridement Subcutaneous Subcutaneous Subcutaneous -Post Debridement Size (cm) - Length 1.7 1.0 0.7 -Post Debridement Size (cm) - Width 4.5 3.1 2.0 -Post Debridement Size (cm) - Depth 3.0 3.1 2.5 -Total Square Cm 7.65 3.10 1.40 -Wound/Ulcer Outcome Not Healed Not Healed Not Healed -Ulcer Cleansing Rinsed/ Rinsed/ Rinsed/ Irrigated with Irrigated with Irrigated with Saline Saline Saline -Foul Odor after Cleansing No No No -Bioengineered Tissue No No No -Bleeding Controlled with Pressure Pressure Pressure -Other underminin. 0cm 11-3:00 -Offloading No No No -Treatment Response Procedure Procedure Procedure Tolerated Well Tolerated Well Tolerated Well Pain Scale: 0-10 Numeric Is Patient Pain Free? Yes Yes Yes Wound debrided: #1 Left chest wall. Laterality: Left Wound Grade/Stage: 3. Type of Debridement: Excisional debridement Anesthesia Used: 4% Lidocaine Solution Depth: Down to and including healthy tissue, in the subcutaneous layer Percentage of wound debrided: 100 Instrument Used: 5mm curette Tissue Removed: subcutaneous tissue. Severity: Fat Layer Exposed Amount of bleeding with debridement: Mild Bleeding Controlled with: Pressure Patient tolerated procedure well Assessment/Plan Assessment: 1. Nonhealing abscess ulcer left chest wall. 2. Abscess left chest wall. 3. s/p surgical preparation left chest wall with incision and drainage and excisional debridement abscess involving chest wall muscles (16.5 cm2). Plan: [facility] so will put the VAC on hold until this weekend. He will do daily Aquacel Silver dressing changes for this trip. Continue Augmentin for the operative culture that showed Anaerobic cocci. His Prealbumin from 03/01/19 was 27.2. Encouraged nutritional supplementation with protein to help the healing process. Discussed further operative debridement and secondary wound closure. He will think about it and let me know. Follow up one week.
[2019-04-15 13:30] VITALS: BP 150/73; PULSE 74; RESP 16; TEMP 36.7; BMI 33.2
--- NOTE | 2019-04-15 16:24 | PN.PCM_ITS ---
(1) Open wound of left chest wall with complication Status: Acute Current Visit: Yes Code(s): S21.102A - Unspecified open wound of left front wall of thorax without penetration into thoracic cavity, initial encounter Comment: left chest wall abscess (2) Chest wall abscess Status: Acute Current Visit: Yes Code(s): L02.213 - Cutaneous abscess of chest wall Comment: left chest wall abscess (3) Cellulitis of chest wall Status: Acute Current Visit: No Code(s): L03.313 - Cellulitis of chest wall Type of Wound Date of Service: 04/15/19 Chief Complaint: Nonhealing abscess ulcer left chest wall. History of Wound: Surgery 02/28/19 - Surgical preparation left chest wall with incision and drainage and excisional debridement abscess involving chest wall muscles (16.5 cm2). Wound care - aquacel silver. Stop VAC per patient request. Operative culture - Anaerobic cocci. He was placed on Augmentin. Prealbumin from 03/01/19 was 27.2. Encourage nutritional supplementation with protein to help the healing process. CT Chest from 02/27/19 showed subcutaneous edema with fluid collection suggesting abscess in the left anterior chest wall. Today he denies fever. His appetite is good. Progress of Wound: Improved. - Physical Exam Vital Signs Temp Pulse Resp BP 98.0 F 74 16 150/73 H 04/15/19 13:30 04/15/19 13:30 04/15/19 13:30 04/15/19 13:30 General: Alert, Oriented x3, Cooperative HEENT: Atraumatic Oral: Moist Mucosa Lungs: Normal air movement Cardiovascular: Regular rate Extremities: No edema, Capillary Refill Less than 3 Seconds Skin: Ulcer/ Wound - Left chest wall/upper abdomen ulcer Wound Measurements and Assessment WC - Nurse 1 - General Ulcer Measurement Start: 03/24/19 08:39 Freq: Status: Active Protocol: Activity Type Activity Date Activity User E-Sign Co-Sign Detail Recorded Client Recorded Date Recorded By Document 04/15/19 13:30 ADDI [id number] 04/15/19 13:31 ADDI 04/15/19 13:30 Wound Center Nurse 1 [Ulcer Assessment] #1 L Chest -Combined with other wound No -Current Size (cm) - Length 0.4 -Current Size (cm) - Width 1.6 -Current Size (cm) - Depth 1.8 -Total Square Cm 0.64 -Photo Taken No -Epithelialization Small 1-33% -Tunneling No -Undermining/Tunneling No -Circular Undermining No -Exudate Amt Small -Exudate Type Serosanguineous -Wound Margin Flat & Intact -Granulation Amt Large (67-100%) -Granulation Quality Red -Slough/Fibrin Yes -Necrosis Amt Small (1-33%) -Necrotic Tissue Type Adherent Slough -Structure Exposed N/A -Texture (Radha-wound Skin Appearance) Assessed Localized Edema -Moisture (Radha-wound Skin Appearance Assessed ) Dry/Scaly -Color (Radha-wound Skin Appearance) Assessed -Temperature (Radha-wound Skin No Abnormality Appearance) (Pt Warm) -Tenderness on Palpation (Radha-wound No Skin Appearance) -Ulcer Cleansing Rinsed/ Irrigated with Saline -Foul Odor after Cleansing No -Anesthetic Used 4% Lidocaine Solution [Edema Assessment] -Lower Limb Edema Present NA WC - Nurse 2 - General Ulcer CM Notes Start: 03/24/19 08:39 Freq: Status: Active Protocol: Activity Type Activity Date Activity User E-Sign Co-Sign Detail Recorded Client Recorded Date Recorded By Document 04/15/19 13:49 [id number] 04/15/19 13:53 04/15/19 13:49 Wound Center Nurse 2 [Procedure/Treatment] #1 L Chest -Time 13:49 -Correct Patient Yes -Correct Side, Site, Position Yes -Correct Procedure Yes -Procedure Performed Yes -Type of Procedure Debridement -Clinical Debridement Subcutaneous -Post Debridement Size (cm) - Length 0.6 -Post Debridement Size (cm) - Width 2.0 -Post Debridement Size (cm) - Depth 2.0 -Total Square Cm 1.20 -Wound/Ulcer Outcome Not Healed -Ulcer Cleansing Rinsed/ Irrigated with Saline -Foul Odor after Cleansing No -Bioengineered Tissue No -Bleeding Controlled with Pressure -Offloading No -Treatment Response Procedure Tolerated Well [See Physician Procedure note for Specifics] Pain Scale: 0-10 Numeric [Pain] -Is Patient Pain Free? Yes Musculoskeletal: No Tenderness to Palpation of Joints or Extremities Neurological: Neuro grossly intact Psych/Mental Status: Normal Affect, Appropriate Debridement Note Post-Debridement Measurements/Treatment WC - Nurse 2 - General Ulcer CM Notes Start: 03/24/19 08:39 Freq: Status: Active Protocol: Activity Type Activity Date Activity User E-Sign Co-Sign Detail Recorded Client Recorded Date Recorded By Document 03/24/19 09:06 [id number] 03/24/19 09:11 Document 03/31/19 08:39 [id number] 03/31/19 08:42 Document 04/07/19 08:31 [id number] 04/07/19 08:37 Document 04/15/19 13:49 [id number] 04/15/19 13:53 03/24/19 03/31/19 04/07/19 09:06 08:39 08:31 Wound Center Nurse 2 #1 L Chest -Time 09:06 08:40 08:32 -Correct Patient Yes Yes Yes -Correct Side, Site, Position Yes Yes Yes -Correct Procedure Yes Yes Yes -Procedure Performed Yes Yes Yes -Type of Procedure Debridement Debridement Debridement -Clinical Debridement Subcutaneous Subcutaneous Subcutaneous -Post Debridement Size (cm) - Length 1.7 1.0 0.7 -Post Debridement Size (cm) - Width 4.5 3.1 2.0 -Post Debridement Size (cm) - Depth 3.0 3.1 2.5 -Total Square Cm 7.65 3.10 1.40 -Wound/Ulcer Outcome Not Healed Not Healed Not Healed -Ulcer Cleansing Rinsed/ Rinsed/ Rinsed/ Irrigated with Irrigated with Irrigated with Saline Saline Saline -Foul Odor after Cleansing No No No -Bioengineered Tissue No No No -Bleeding Controlled with Pressure Pressure Pressure -Other underminin. 0cm 11-3:00 -Offloading No No No -Treatment Response Procedure Procedure Procedure Tolerated Well Tolerated Well Tolerated Well Pain Scale: 0-10 Numeric Is Patient Pain Free? Yes Yes Yes 04/15/19 13:49 Wound Center Nurse 2 #1 L Chest -Time 13:49 -Correct Patient Yes -Correct Side, Site, Position Yes -Correct Procedure Yes -Procedure Performed Yes -Type of Procedure Debridement -Clinical Debridement Subcutaneous -Post Debridement Size (cm) - Length 0.6 -Post Debridement Size (cm) - Width 2.0 -Post Debridement Size (cm) - Depth 2.0 -Total Square Cm 1.20 -Wound/Ulcer Outcome Not Healed -Ulcer Cleansing Rinsed/ Irrigated with Saline -Foul Odor after Cleansing No -Bioengineered Tissue No -Bleeding Controlled with Pressure -Other -Offloading No -Treatment Response Procedure Tolerated Well Pain Scale: 0-10 Numeric Is Patient Pain Free? Yes Wound debrided: Left chest wall/upper abdomen Laterality: Left Type of Debridement: Excisional debridement Anesthesia Used: 4% Lidocaine Solution Depth: Down to and including healthy tissue, in the subcutaneous layer Percentage of wound debrided: 100 Instrument Used: 7mm curette Tissue Removed: Subcutaneous tissue and slough Severity: Fat Layer Exposed Amount of bleeding with debridement: Mild Bleeding Controlled with: Pressure Patient tolerated procedure well Assessment/Plan Active Problems Open wound of left chest wall with complication (Acute) left chest wall abscess Chest wall abscess (Acute) left chest wall abscess Assessment: 1. Nonhealing abscess ulcer left chest wall. 2. Abscess left chest wall. 3. s/p surgical preparation left chest wall with incision and drainage and excisional debridement abscess involving chest wall muscles (16.5 cm2). Plan: He is back from [facility] on a school field trip. He would like to continue to do daily Aquacel Silver dressing changes and stop the wound VAC. Finished the Augmentin for the operative culture that showed Anaerobic cocci. His Prealbumin from 03/01/19 was 27.2. Encouraged nutritional supplementation with protein to help the healing process. Discussed further operative debridement and secondary wound closure. He will think about it and let me know. Follow up one week. Code Visit [id number]: [id number] Aliyah subq tissue 20 sq cm/<
== END 2019-04-18 23:59 ==
LOC: WC 13:00
PROVIDERS: Visit Provider Nurse Practitioner Family
DX: L02.213 Cutaneous abscess of chest wall (principal); L03.313 Cellulitis of chest wall; L03.115 Cellulitis of right lower limb; Y83.9 Surgical procedure, unspecified as the cause of abnormal reaction of the patient, or of later complication, without mention of misadventure at the time of the procedure; T81.89XA Other complications of procedures, not elsewhere classified, initial encounter; S21.102A Unspecified open wound of left front wall of thorax without penetration into thoracic cavity, initial encounter
CPT/HCPCS: 11042

== ENCOUNTER 2019-05-12 08:15 | Outpatient (RCR) | payer OTHER, SELFPAY ==
[2019-04-19 01:09] VITALS: BP 150/73; PULSE 74; RESP 16; TEMP 36.7
[2019-04-28 08:28] VITALS: BP 114/66; PULSE 62; RESP 16; TEMP 36.6; BMI 33.2
--- NOTE | 2019-04-28 22:36 | PN.PCM_ITS ---
Type of Wound Date of Service: 04/28/19 Chief Complaint: Nonhealing abscess ulcer left chest wall. History of Wound: Surgery 02/28/19 - Surgical preparation left chest wall with incision and drainage and excisional debridement abscess involving chest wall muscles (16.5 cm2). Wound care - Silver. Operative culture - Anaerobic cocci. He was placed on Augmentin and has finished them. Prealbumin from 03/01/19 was 27.2. Encourage nutritional supplementation with protein to help the healing process. CT Chest from 02/27/19 showed subcutaneous edema with fluid collection suggesting abscess in the left anterior chest wall. Today he denies fever. His appetite is good. Progress of Wound: Improved. - Physical Exam Vital Signs Temp Pulse Resp BP 97.8 F 62 16 114/66 04/28/19 08:28 04/28/19 08:28 04/28/19 08:28 04/28/19 08:28 Wound Measurements and Assessment WC - Nurse 1 - General Ulcer Measurement Start: 04/28/19 08:27 Freq: Status: Active Protocol: Activity Type Activity Date Activity User E-Sign Co-Sign Detail Recorded Client Recorded Date Recorded By Document 04/28/19 08:28 [id number] 04/28/19 08:29 04/28/19 08:28 Wound Center Nurse 1 [Ulcer Assessment] #1 L Chest -Combined with other wound No -Current Size (cm) - Length 0.5 -Current Size (cm) - Width 1.5 -Current Size (cm) - Depth 2.5 -Total Square Cm 0.75 -Photo Taken No -Epithelialization Small 1-33% -Tunneling No -Undermining/Tunneling No -Circular Undermining No -Exudate Amt Medium -Exudate Type Serosanguineous -Wound Margin Flat & Intact -Granulation Amt Medium (34-66%) -Granulation Quality Red -Slough/Fibrin Yes -Necrosis Amt Small (1-33%) -Structure Exposed N/A -Texture (Radha-wound Skin Appearance) Assessed Scarring -Moisture (Radha-wound Skin Appearance Assessed ) Dry/Scaly -Color (Radha-wound Skin Appearance) Assessed -Temperature (Radha-wound Skin No Abnormality Appearance) (Pt Warm) -Tenderness on Palpation (Radha-wound No Skin Appearance) -Ulcer Cleansing Rinsed/ Irrigated with Saline -Foul Odor after Cleansing No -Anesthetic Used 4% Lidocaine Solution [Edema Assessment] -Lower Limb Edema Present NA - Nurse 2 - General Ulcer CM Notes Start: 04/28/19 08:27 Freq: Status: Active Protocol: Activity Type Activity Date Activity User E-Sign Co-Sign Detail Recorded Client Recorded Date Recorded By Document 04/28/19 08:30 [id number] 04/28/19 08:32 04/28/19 08:30 Wound Center Nurse 2 [Procedure/Treatment] #1 L Chest -Time 08:30 -Correct Patient Yes -Correct Side, Site, Position Yes -Correct Procedure Yes -Procedure Performed Yes -Type of Procedure Debridement -Clinical Debridement Subcutaneous -Post Debridement Size (cm) - Length 0.8 -Post Debridement Size (cm) - Width 1.7 -Post Debridement Size (cm) - Depth 2.8 -Total Square Cm 1.36 -Wound/Ulcer Outcome Not Healed -Ulcer Cleansing Rinsed/ Irrigated with Saline -Foul Odor after Cleansing No -Bioengineered Tissue No -Bleeding Controlled with Pressure -Offloading No -Treatment Response Procedure Tolerated Well [See Physician Procedure note for Specifics] Pain Scale: 0-10 Numeric [Pain] -Is Patient Pain Free? Yes Debridement Note Post-Debridement Measurements/Treatment - Nurse 2 - General Ulcer CM Notes Start: 04/28/19 08:27 Freq: Status: Active Protocol: Activity Type Activity Date Activity User E-Sign Co-Sign Detail Recorded Client Recorded Date Recorded By Document 04/28/19 08:30 [id number] 04/28/19 08:32 04/28/19 08:30 Wound Center Nurse 2 #1 L Chest -Time 08:30 -Correct Patient Yes -Correct Side, Site, Position Yes -Correct Procedure Yes -Procedure Performed Yes -Type of Procedure Debridement -Clinical Debridement Subcutaneous -Post Debridement Size (cm) - Length 0.8 -Post Debridement Size (cm) - Width 1.7 -Post Debridement Size (cm) - Depth 2.8 -Total Square Cm 1.36 -Wound/Ulcer Outcome Not Healed -Ulcer Cleansing Rinsed/ Irrigated with Saline -Foul Odor after Cleansing No -Bioengineered Tissue No -Bleeding Controlled with Pressure -Offloading No -Treatment Response Procedure Tolerated Well Pain Scale: 0-10 Numeric Is Patient Pain Free? Yes Wound debrided: #1 Left chest wall. Laterality: Left Wound Grade/Stage: 3. Type of Debridement: Excisional debridement Anesthesia Used: 4% Lidocaine Solution Depth: Down to and including healthy tissue, in the subcutaneous layer Percentage of wound debrided: 100 Instrument Used: 5mm curette Tissue Removed: subcutaneous tissue. Severity: Fat Layer Exposed Amount of bleeding with debridement: Mild Bleeding Controlled with: Pressure Patient tolerated procedure well Assessment/Plan Assessment: 1. Nonhealing abscess ulcer left chest wall. 2. Abscess left chest wall. 3. s/p surgical preparation left chest wall with incision and drainage and excisional debridement abscess involving chest wall muscles (16.5 cm2). Plan: He has returned from the [facility] field trip and wants to continue the Aquacel Silver dressing changes daily. He has finished the Augmentin for the operative culture that showed Anaerobic cocci. His Prealbumin from 03/01/19 was 27.2. Encouraged nutritional supplementation with protein to help the healing process. Discussed further operative debridement and secondary wound closure. He will think about it and let me know. There is still a slight depth to the ulcer. We are looking into the JORDI NPWT dressing which is more portable than the VAC. He is interested in this modality. Follow up one week.
[2019-05-05 08:15] VITALS: BP 151/85; PULSE 64; RESP 18; TEMP 36.5; BMI 33.2
--- NOTE | 2019-05-05 09:45 | PCM.WC.PN ---
(1) Healing skin ulcer with fat layer exposed Status: Chronic Current Visit: Yes Code(s): L98.492 - Non-pressure chronic ulcer of skin of other sites with fat layer exposed Comment: nonhealing ulcer left chest wall (2) Open wound of left chest wall with complication Status: Chronic Current Visit: Yes Code(s): S21.102A - Unspecified open wound of left front wall of thorax without penetration into thoracic cavity, initial encounter Comment: left chest wall abscess Type of Wound Date of Service: 05/05/19 Chief Complaint: Nonhealing abscess ulcer left chest wall. History of Wound: Surgery 02/28/19 - Surgical preparation left chest wall with incision and drainage and excisional debridement abscess involving chest wall muscles (16.5 cm2). Wound care - Jordi negative pressure dressing. Operative culture - Anaerobic cocci. He was placed on Augmentin and has finished them. Prealbumin from 03/01/19 was 27.2. Encourage nutritional supplementation with protein to help the healing process. CT Chest from 02/27/19 showed subcutaneous edema with fluid collection suggesting abscess in the left anterior chest wall. Today he denies fever. His appetite is good. Progress of Wound: Stable - Physical Exam Vital Signs Temp Pulse Resp BP 97.7 F L 64 18 151/85 H 05/05/19 08:15 05/05/19 08:15 05/05/19 08:15 05/05/19 08:15 General: Alert, Oriented x3, Cooperative HEENT: Atraumatic, PERRLA Oral: Moist Mucosa Lungs: Normal air movement Cardiovascular: Regular rate Extremities: No edema, Capillary Refill Less than 3 Seconds Skin: Ulcer/ Wound - Left chest wall under left nipple. Wound Measurements and Assessment WC - Nurse 1 - General Ulcer Measurement Start: 04/28/19 08:27 Freq: Status: Active Protocol: Activity Type Activity Date Activity User E-Sign Co-Sign Detail Recorded Client Recorded Date Recorded By Document 05/05/19 08:15 RB [id number] 05/05/19 08:21 RB 05/05/19 08:15 Wound Center Nurse 1 [Ulcer Assessment] #1 L Chest -Combined with other wound No -Current Size (cm) - Length 0.7 -Current Size (cm) - Width 1.5 -Current Size (cm) - Depth 2.3 -Total Square Cm 1.05 -Tunneling No -Undermining/Tunneling No -Circular Undermining No -Exudate Amt Small -Exudate Type Serosanguineous -Wound Margin Distinct, Outline Attached -Granulation Amt Medium (34-66%) -Granulation Quality [place] -Slough/Fibrin Yes -Necrosis Amt Large (67-100%) -Necrotic Tissue Type Adherent Slough -Structure Exposed N/A -Texture (Radha-wound Skin Appearance) Assessed -Moisture (Radha-wound Skin Appearance Assessed ) -Color (Radha-wound Skin Appearance) Assessed -Temperature (Radha-wound Skin No Abnormality Appearance) (Pt Warm) -Tenderness on Palpation (Radha-wound No Skin Appearance) -Ulcer Cleansing Rinsed/ Irrigated with Saline -Foul Odor after Cleansing No -Anesthetic Used 5% Lidocaine Gel - Nurse 2 - General Ulcer CM Notes Start: 04/28/19 08:27 Freq: Status: Active Protocol: Activity Type Activity Date Activity User E-Sign Co-Sign Detail Recorded Client Recorded Date Recorded By Document 05/05/19 08:35 [id number] 05/05/19 08:36 05/05/19 08:35 Wound Center Nurse 2 [Procedure/Treatment] -Time 08:36 -Correct Patient Yes -Correct Side, Site, Position Yes -Correct Procedure Yes -Procedure Performed Yes -Type of Procedure Debridement -Clinical Debridement Subcutaneous -Post Debridement Size (cm) - Length 0.7 -Post Debridement Size (cm) - Width 1.7 -Post Debridement Size (cm) - Depth 2.0 -Total Square Cm 1.19 -Wound/Ulcer Outcome Not Healed -Ulcer Cleansing Rinsed/ Irrigated with Saline -Foul Odor after Cleansing No -Bioengineered Tissue No -Bleeding Controlled with Pressure -Offloading No -Treatment Response Procedure Tolerated Well [See Physician Procedure note for Specifics] Pain Scale: 0-10 Numeric [Pain] -Is Patient Pain Free? Yes Musculoskeletal: No Tenderness to Palpation of Joints or Extremities Neurological: Neuro grossly intact Psych/Mental Status: Normal Affect, Appropriate Debridement Note Post-Debridement Measurements/Treatment - Nurse 2 - General Ulcer CM Notes Start: 04/28/19 08:27 Freq: Status: Active Protocol: Activity Type Activity Date Activity User E-Sign Co-Sign Detail Recorded Client Recorded Date Recorded By Document 04/28/19 08:30 [id number] 04/28/19 08:32 Document 05/05/19 08:35 [id number] 05/05/19 08:36 04/28/19 05/05/19 08:30 08:35 Wound Center Nurse 2 #1 L Chest -Time 08:30 08:36 -Correct Patient Yes Yes -Correct Side, Site, Position Yes Yes -Correct Procedure Yes Yes -Procedure Performed Yes Yes -Type of Procedure Debridement Debridement -Clinical Debridement Subcutaneous Subcutaneous -Post Debridement Size (cm) - Length 0.8 0.7 -Post Debridement Size (cm) - Width 1.7 1.7 -Post Debridement Size (cm) - Depth 2.8 2.0 -Total Square Cm 1.36 1.19 -Wound/Ulcer Outcome Not Healed Not Healed -Ulcer Cleansing Rinsed/ Rinsed/ Irrigated with Irrigated with Saline Saline -Foul Odor after Cleansing No No -Bioengineered Tissue No No -Bleeding Controlled with Pressure Pressure -Offloading No No -Treatment Response Procedure Procedure Tolerated Well Tolerated Well Pain Scale: 0-10 Numeric Is Patient Pain Free? Yes Yes Wound debrided: Left chest Laterality: Left Type of Debridement: Excisional debridement Anesthesia Used: 5% Lidocaine Gel Depth: Down to and including healthy tissue, in the subcutaneous layer Percentage of wound debrided: 100 Instrument Used: 5mm curette Tissue Removed: Subcutaneous tissue and slough Severity: Fat Layer Exposed Amount of bleeding with debridement: Mild Bleeding Controlled with: Pressure Patient tolerated procedure well Assessment/Plan Active Problems Healing skin ulcer with fat layer exposed (Chronic) nonhealing ulcer left chest wall Open wound of left chest wall with complication (Chronic) left chest wall abscess Assessment: 1. Nonhealing abscess ulcer left chest wall. 2. Abscess left chest wall. 3. s/p surgical preparation left chest wall with incision and drainage and excisional debridement abscess involving chest wall muscles (16.5 cm2). Plan: We will stop the aquacel silver and start Jordi NPWT He has finished the Augmentin for the operative culture that showed Anaerobic cocci. His Prealbumin from 03/01/19 was 27.2. Encouraged nutritional supplementation with protein to help the healing process. Discussed further operative debridement and secondary wound closure. He will think about it and let me know. There is still a slight depth to the ulcer. We started JORDI NPWT dressing today. If he has any issues with the JORDI he is to come in for a nurse visit later this week. Follow up one week. Code Visit [id number]
[2019-05-12 08:53] VITALS: BP 128/69; PULSE 59; RESP 16; TEMP 36.4; BMI 33.2
--- NOTE | 2019-05-12 23:38 | PN.PCM_ITS ---
Type of Wound Date of Service: 05/12/19 Chief Complaint: Nonhealing abscess ulcer left chest wall. History of Wound: Surgery 02/28/19 - Surgical preparation left chest wall with incision and drainage and excisional debridement abscess involving chest wall muscles (16.5 cm2). Wound care - JORDI. Operative culture - Anaerobic cocci. He was placed on Augmentin and has finished them. Prealbumin from 03/01/19 was 27.2. Encourage nutritional supplementation with protein to help the healing process. CT Chest from 02/27/19 showed subcutaneous edema with fluid collection suggesting abscess in the left anterior chest wall. Today he denies fever. His appetite is good. Progress of Wound: Slightly improved. - Physical Exam Vital Signs Temp Pulse Resp BP 97.5 F L 59 L 16 128/69 H 05/12/19 08:53 05/12/19 08:53 05/12/19 08:53 05/12/19 08:53 Wound Measurements and Assessment WC - Nurse 1 - General Ulcer Measurement Start: 04/28/19 08:27 Freq: Status: Active Protocol: Activity Type Activity Date Activity User E-Sign Co-Sign Detail Recorded Client Recorded Date Recorded By Document 05/12/19 08:53 MW [id number] 05/12/19 08:59 MW 05/12/19 08:53 Wound Center Nurse 1 [Ulcer Assessment] #1 L Chest -Combined with other wound No -Current Size (cm) - Length 0.4 -Current Size (cm) - Width 1.0 -Current Size (cm) - Depth 1.9 -Total Square Cm 0.40 -Date of Last Picture (Recall this 05/12/19 field) -Photo Taken Yes -Epithelialization None Present -Tunneling No -Undermining/Tunneling No -Circular Undermining No -Exudate Amt Small -Exudate Type Serous -Wound Margin Indistinct, Non -Visible -Granulation Amt None Present (0 %) -Granulation Quality N/A -Slough/Fibrin Yes -Necrosis Amt Large (67-100%) -Necrotic Tissue Type Adherent Slough -Structure Exposed N/A -Texture (Radha-wound Skin Appearance) Assessed, Scarring -Moisture (Radha-wound Skin Appearance No Abnormality, ) Assessed -Color (Radha-wound Skin Appearance) No Abnormality, Assessed -Temperature (Radha-wound Skin No Abnormality Appearance) (Pt Warm) -Tenderness on Palpation (Radha-wound No Skin Appearance) -Ulcer Cleansing Rinsed/ Irrigated with Saline -Foul Odor after Cleansing No -Anesthetic Used 4% Lidocaine Solution [Edema Assessment] -Lower Limb Edema Present No WC - Nurse 2 - General Ulcer CM Notes Start: 04/28/19 08:27 Freq: Status: Active Protocol: Activity Type Activity Date Activity User E-Sign Co-Sign Detail Recorded Client Recorded Date Recorded By Document 05/12/19 09:27 [id number] 05/12/19 09:31 05/12/19 09:27 Wound Center Nurse 2 [Procedure/Treatment] #1 L Chest -Time 09:27 -Correct Patient Yes -Correct Side, Site, Position Yes -Correct Procedure Yes -Procedure Performed Yes -Type of Procedure Debridement -Clinical Debridement Subcutaneous -Post Debridement Size (cm) - Length 0.5 -Post Debridement Size (cm) - Width 1 -Post Debridement Size (cm) - Depth 1.6 -Total Square Cm 0.5 -Wound/Ulcer Outcome Not Healed -Ulcer Cleansing Rinsed/ Irrigated with Saline -Foul Odor after Cleansing No -Bioengineered Tissue No -Bleeding Controlled with Pressure -Offloading No -Treatment Response Procedure Tolerated Well [See Physician Procedure note for Specifics] Pain Scale: 0-10 Numeric [Pain] -Is Patient Pain Free? Yes Debridement Note Post-Debridement Measurements/Treatment WC - Nurse 2 - General Ulcer CM Notes Start: 04/28/19 08:27 Freq: Status: Active Protocol: Activity Type Activity Date Activity User E-Sign Co-Sign Detail Recorded Client Recorded Date Recorded By Document 04/28/19 08:30 [id number] 04/28/19 08:32 Document 05/05/19 08:35 [id number] 05/05/19 08:36 Document 05/12/19 09:27 [id number] 05/12/19 09:31 04/28/19 05/05/19 05/12/19 08:30 08:35 09:27 Wound Center Nurse 2 #1 L Chest -Time 08:30 08:36 09:27 -Correct Patient Yes Yes Yes -Correct Side, Site, Position Yes Yes Yes -Correct Procedure Yes Yes Yes -Procedure Performed Yes Yes Yes -Type of Procedure Debridement Debridement Debridement -Clinical Debridement Subcutaneous Subcutaneous Subcutaneous -Post Debridement Size (cm) - Length 0.8 0.7 0.5 -Post Debridement Size (cm) - Width 1.7 1.7 1 -Post Debridement Size (cm) - Depth 2.8 2.0 1.6 -Total Square Cm 1.36 1.19 0.5 -Wound/Ulcer Outcome Not Healed Not Healed Not Healed -Ulcer Cleansing Rinsed/ Rinsed/ Rinsed/ Irrigated with Irrigated with Irrigated with Saline Saline Saline -Foul Odor after Cleansing No No No -Bioengineered Tissue No No No -Bleeding Controlled with Pressure Pressure Pressure -Offloading No No No -Treatment Response Procedure Procedure Procedure Tolerated Well Tolerated Well Tolerated Well Pain Scale: 0-10 Numeric Is Patient Pain Free? Yes Yes Yes Wound debrided: #1 Left chest wall. Laterality: Left Wound Grade/Stage: 3. Type of Debridement: Excisional debridement Anesthesia Used: 4% Lidocaine Solution Depth: Down to and including healthy tissue, in the subcutaneous layer Percentage of wound debrided: 100 Instrument Used: 5mm curette Tissue Removed: subcutaneous tissue. Severity: Fat Layer Exposed Amount of bleeding with debridement: Mild Bleeding Controlled with: Pressure Patient tolerated procedure well Assessment/Plan Assessment: 1. Nonhealing abscess ulcer left chest wall. 2. Abscess left chest wall. 3. s/p surgical preparation left chest wall with incision and drainage and excisional debridement abscess involving chest wall muscles (16.5 cm2). Plan: The Silver dressing changes had changed to JORDI to see if healing can improve more. 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 Will increase changing it to twice a week to see if that helps. If not then can go back to the Silver dressing changes. He has finished the Augmentin for the operative culture that showed Anaerobic cocci. His Prealbumin from 03/01/19 was 27.2. Encouraged nutritional supplementation with protein to help the healing process. Discussed further operative debridement and secondary wound closure. He will think about it and let me know. Early June would be a good time for surgical closure if needed. There is still a slight depth to the ulcer. Follow up one week.
== END 2019-05-18 23:59 ==
LOC: WC 08:15
PROVIDERS: Visit Provider Nurse Practitioner Family
DX: L02.213 Cutaneous abscess of chest wall (principal); R60.0 Localized edema; S21.102A Unspecified open wound of left front wall of thorax without penetration into thoracic cavity, initial encounter; Y83.8 Other surgical procedures as the cause of abnormal reaction of the patient, or of later complication, without mention of misadventure at the time of the procedure; T81.89XA Other complications of procedures, not elsewhere classified, initial encounter
CPT/HCPCS: 11042; 97607

== ENCOUNTER 2019-06-16 08:15 | Outpatient (RCR) | payer OTHER, SELFPAY ==
[2019-05-19 00:48] VITALS: BP 128/69; PULSE 59; RESP 16; TEMP 36.4
[2019-05-19 09:52] VITALS: BP 140/72; PULSE 67; RESP 16; TEMP 36.7; BMI 33.2
--- NOTE | 2019-05-19 12:14 | PCM.WC.PN ---
Type of Wound Date of Service: 05/19/19 Chief Complaint: Nonhealing abscess ulcer left chest wall. History of Wound: Surgery 02/28/19 - Surgical preparation left chest wall with incision and drainage and excisional debridement abscess involving chest wall muscles (16.5 cm2). Wound care - JORDI. Operative culture - Anaerobic cocci. He was placed on Augmentin and has finished them. Prealbumin from 03/01/19 was 27.2. Encourage nutritional supplementation with protein to help the healing process. CT Chest from 02/27/19 showed subcutaneous edema with fluid collection suggesting abscess in the left anterior chest wall. Today he denies fever. His appetite is good. Progress of Wound: Slightly improved. - Physical Exam Vital Signs Temp Pulse Resp BP 98.1 F 67 16 140/72 H 05/19/19 09:52 05/19/19 09:52 05/19/19 09:52 05/19/19 09:52 Debridement Note Post-Debridement Measurements/Treatment WC - Nurse 2 - General Ulcer CM Notes Start: 05/19/19 09:51 Freq: Status: Active Protocol: Activity Type Activity Date Activity User E-Sign Co-Sign Detail Recorded Client Recorded Date Recorded By Document 05/19/19 10:19 JF [id number] 05/19/19 10:20 JF 05/19/19 10:19 Wound Center Nurse 2 #1 L Chest -Time 10:19 -Correct Patient Yes -Correct Side, Site, Position Yes -Correct Procedure Yes -Procedure Performed Yes -Type of Procedure Debridement -Clinical Debridement Subcutaneous -Post Debridement Size (cm) - Length 1 -Post Debridement Size (cm) - Width 1.5 -Post Debridement Size (cm) - Depth 2.2 -Total Square Cm 1.5 -Wound/Ulcer Outcome Not Healed -Ulcer Cleansing Rinsed/ Irrigated with Saline -Foul Odor after Cleansing No -Bioengineered Tissue No -Bleeding Controlled with Pressure -Offloading No -Treatment Response Procedure Tolerated Well Pain Scale: 0-10 Numeric Is Patient Pain Free? Yes Wound debrided: #1 Left chest wall. Laterality: Left Wound Grade/Stage: 3. Type of Debridement: Excisional debridement Anesthesia Used: 4% Lidocaine Solution Depth: Down to and including healthy tissue, in the subcutaneous layer Percentage of wound debrided: 100 Instrument Used: 5mm curette Tissue Removed: subcutaneous tissue. Severity: Fat Layer Exposed Amount of bleeding with debridement: Mild Bleeding Controlled with: Pressure Patient tolerated procedure well Assessment/Plan Assessment: 1. Nonhealing abscess ulcer left chest wall. 2. Abscess left chest wall. 3. s/p surgical preparation left chest wall with incision and drainage and excisional debridement abscess involving chest wall muscles (16.5 cm2). Plan: Patient states the JORDI is not practical even at twice a week changes. Will change back to Silver dressing changes daily. He has finished the Augmentin for the operative culture that showed Anaerobic cocci. His Prealbumin from 03/01/19 was 27.2. Encouraged nutritional supplementation with protein to help the healing process. Discussed further operative debridement and secondary wound closure. He will think about it and let me know. Early June would be a good time for surgical closure if needed. There is still a slight depth to the ulcer. Follow up one week.
[2019-05-26 08:13] VITALS: BP 154/99; PULSE 67; RESP 18; TEMP 36.6; BMI 33.2
--- NOTE | 2019-05-26 12:43 | PCM.WC.PN ---
(1) Healing skin ulcer with fat layer exposed Status: Chronic Code(s): L98.492 - Non-pressure chronic ulcer of skin of other sites with fat layer exposed Comment: nonhealing ulcer left chest wall Type of Wound Date of Service: 05/26/19 Chief Complaint: Nonhealing abscess ulcer left chest wall. History of Wound: Surgery 02/28/19 - Surgical preparation left chest wall with incision and drainage and excisional debridement abscess involving chest wall muscles (16.5 cm2). Wound care - Stop the silver. Will start Dakin's solution due to the increase in biofilm. Operative culture - Anaerobic cocci. He was placed on Augmentin and has finished them. Prealbumin from 03/01/19 was 27.2. Encourage nutritional supplementation with protein to help the healing process. CT Chest from 02/27/19 showed subcutaneous edema with fluid collection suggesting abscess in the left anterior chest wall. Today he denies fever. His appetite is good. Progress of Wound: Stable - Physical Exam Vital Signs Temp Pulse Resp BP 97.9 F 67 18 154/99 H 05/26/19 08:13 05/26/19 08:13 05/26/19 08:13 05/26/19 08:13 General: Alert, Oriented x3, Cooperative HEENT: Atraumatic Oral: Moist Mucosa Lungs: Normal air movement Cardiovascular: Regular rate Abdomen: Soft Extremities: No edema, Capillary Refill Less than 3 Seconds Skin: Ulcer/ Wound - left chest ulcer Wound Measurements and Assessment WC - Nurse 1 - General Ulcer Measurement Start: 05/19/19 09:51 Freq: Status: Active Protocol: Activity Type Activity Date Activity User E-Sign Co-Sign Detail Recorded Client Recorded Date Recorded By Document 05/26/19 08:13 DL [id number] 05/26/19 08:20 DL 05/26/19 08:13 Wound Center Nurse 1 [Ulcer Assessment] #1 L Chest -Current Size (cm) - Length 0.7 -Current Size (cm) - Width 1.2 -Current Size (cm) - Depth 0.2 -Total Square Cm 0.84 -Photo Taken No -Tunneling Position (O'clock) 12 -Tunneling Distance (cm) 2.5 -Undermining/Tunneling No -Exudate Amt Small -Exudate Type Serosanguineous -Wound Margin Distinct, Outline Attached -Granulation Amt Medium (34-66%) -Granulation Quality [place] -Necrosis Amt Medium (34-66%) -Necrotic Tissue Type Adherent Slough -Structure Exposed N/A -Texture (Radha-wound Skin Appearance) Scarring -Moisture (Radha-wound Skin Appearance No Abnormality ) -Color (Radha-wound Skin Appearance) No Abnormality -Temperature (Radha-wound Skin No Abnormality Appearance) (Pt Warm) -Tenderness on Palpation (Radha-wound No Skin Appearance) -Ulcer Cleansing Rinsed/ Irrigated with Saline -Foul Odor after Cleansing No -Anesthetic Used 5% Lidocaine Gel - Nurse 2 - General Ulcer CM Notes Start: 05/19/19 09:51 Freq: Status: Active Protocol: Activity Type Activity Date Activity User E-Sign Co-Sign Detail Recorded Client Recorded Date Recorded By Document 05/26/19 08:49 ADDI [id number] 05/26/19 08:51 05/26/19 08:49 Wound Center Nurse 2 [Procedure/Treatment] -Time 08:50 -Correct Patient Yes -Correct Side, Site, Position Yes -Correct Procedure Yes -Procedure Performed Yes -Type of Procedure Debridement -Clinical Debridement Subcutaneous -Post Debridement Size (cm) - Length 0.8 -Post Debridement Size (cm) - Width 1.5 -Post Debridement Size (cm) - Depth 2.4 -Total Square Cm 1.20 -Wound/Ulcer Outcome Not Healed -Ulcer Cleansing Rinsed/ Irrigated with Saline -Foul Odor after Cleansing No -Bioengineered Tissue No -Bleeding Controlled with Pressure -Offloading No -Treatment Response Procedure Tolerated Well [See Physician Procedure note for Specifics] Pain Scale: 0-10 Numeric [Pain] -Is Patient Pain Free? Yes Musculoskeletal: No Tenderness to Palpation of Joints or Extremities Neurological: Neuro grossly intact Psych/Mental Status: Normal Affect, Appropriate Debridement Note Post-Debridement Measurements/Treatment - Nurse 2 - General Ulcer CM Notes Start: 05/19/19 09:51 Freq: Status: Active Protocol: Activity Type Activity Date Activity User E-Sign Co-Sign Detail Recorded Client Recorded Date Recorded By Document 05/19/19 10:19 ADDI [id number] 05/19/19 10:20 Document 05/26/19 08:49 [id number] 05/26/19 08:51 05/19/19 05/26/19 10:19 08:49 Wound Center Nurse 2 #1 L Chest -Time 10:19 08:50 -Correct Patient Yes Yes -Correct Side, Site, Position Yes Yes -Correct Procedure Yes Yes -Procedure Performed Yes Yes -Type of Procedure Debridement Debridement -Clinical Debridement Subcutaneous Subcutaneous -Post Debridement Size (cm) - Length 1 0.8 -Post Debridement Size (cm) - Width 1.5 1.5 -Post Debridement Size (cm) - Depth 2.2 2.4 -Total Square Cm 1.5 1.20 -Wound/Ulcer Outcome Not Healed Not Healed -Ulcer Cleansing Rinsed/ Rinsed/ Irrigated with Irrigated with Saline Saline -Foul Odor after Cleansing No No -Bioengineered Tissue No No -Bleeding Controlled with Pressure Pressure -Offloading No No -Treatment Response Procedure Procedure Tolerated Well Tolerated Well Pain Scale: 0-10 Numeric Is Patient Pain Free? Yes Yes Wound debrided: left chest ulcer Laterality: Left Type of Debridement: Excisional debridement Anesthesia Used: 5% Lidocaine Gel Depth: Down to and including healthy tissue, in the subcutaneous layer Percentage of wound debrided: 100 Instrument Used: 3mm curette Tissue Removed: Subcutaneous tissue and slough, increase amount of biofilm today. Severity: Fat Layer Exposed Amount of bleeding with debridement: Mild Bleeding Controlled with: Compression and gauze Patient tolerated procedure well Assessment/Plan Assessment: 1. Nonhealing abscess ulcer left chest wall. 2. Abscess left chest wall. 3. s/p surgical preparation left chest wall with incision and drainage and excisional debridement abscess involving chest wall muscles (16.5 cm2). Plan: We will stop the aquacel silver and start Dakin's solutions due to his increase in biofilm and no change in the depth. He could not keep a good seal on with the JORDI. He does not want to try another VAC option. He has finished the Augmentin for the operative culture that showed Anaerobic cocci. His Prealbumin from 03/01/19 was 27.2. Encouraged nutritional supplementation with protein to help the healing process. Discussed further operative debridement and secondary wound closure. He will think about it and let me know. Stressed importance of increased protein intake and Vitamin C for wound healing. Follow up one week. Code Visit [id number]
[2019-06-02 08:22] VITALS: BP 154/88; PULSE 62; RESP 16; TEMP 35.8; BMI 33.2
--- NOTE | 2019-06-02 14:29 | PN.PCM_ITS ---
Type of Wound Date of Service: 06/02/19 Chief Complaint: Nonhealing abscess ulcer left chest wall. History of Wound: Surgery 02/28/19 - Surgical preparation left chest wall with incision and drainage and excisional debridement abscess involving chest wall muscles (16.5 cm2). Wound care - Dakin's. Operative culture - Anaerobic cocci. He was placed on Augmentin and has finished them. Prealbumin from 03/01/19 was 27.2. Encourage nutritional supplementation with protein to help the healing pr ocess. CT Chest from 02/27/19 showed subcutaneous edema with fluid collection suggesting abscess in the left anterior chest wall. Today he denies fever. His appetite is good. Progress of Wound: Slightly improved. - Physical Exam Vital Signs Temp Pulse Resp BP 96.4 F L 62 16 154/88 H 06/02/19 08:22 06/02/19 08:22 06/02/19 08:22 06/02/19 08:22 Wound Measurements and Assessment WC - Nurse 1 - General Ulcer Measurement Start: 05/19/19 09:51 Freq: Status: Active Protocol: Activity Type Activity Date Activity User E-Sign Co-Sign Detail Recorded Client Recorded Date Recorded By Document 06/02/19 08:22 DV [id number] 06/02/19 08:30 DV 06/02/19 08:22 Wound Center Nurse 1 [Ulcer Assessment] #1 L Chest -Combined with other wound No -Current Size (cm) - Length 1.0 -Current Size (cm) - Width 1.5 -Current Size (cm) - Depth 2.5 -Total Square Cm 1.50 -Photo Taken No -Epithelialization None Present -Tunneling No -Undermining/Tunneling No -Circular Undermining No -Classification - Thickness Full Thickness without Exposed Support Structure -Wound Margin Flat & Intact -Granulation Amt Medium (34-66%) -Granulation Quality Red -Slough/Fibrin Yes -Necrosis Amt Medium (34-66%) -Necrotic Tissue Type Adherent Slough -Structure Exposed Fat Layer Exposed -Texture (Radha-wound Skin Appearance) Assessed, Scarring -Moisture (Radha-wound Skin Appearance Assessed, ) Weeping -Color (Radha-wound Skin Appearance) Assessed, Erythema -Temperature (Radha-wound Skin No Abnormality Appearance) (Pt Warm) -Tenderness on Palpation (Radha-wound Yes Skin Appearance) -Ulcer Cleansing Rinsed/ Irrigated with Saline -Foul Odor after Cleansing No -Anesthetic Used 5% Lidocaine Gel - Nurse 2 - General Ulcer CM Notes Start: 05/19/19 09:51 Freq: Status: Active Protocol: Activity Type Activity Date Activity User E-Sign Co-Sign Detail Recorded Client Recorded Date Recorded By Document 06/02/19 08:38 MW [id number] 06/02/19 08:53 MW 06/02/19 08:38 Wound Center Nurse 2 [Procedure/Treatment] -Time 08:39 -Correct Patient Yes -Correct Side, Site, Position Yes -Correct Procedure Yes -Procedure Performed Yes -Type of Procedure Debridement -Clinical Debridement Subcutaneous -Post Debridement Size (cm) - Length 2.6 -Post Debridement Size (cm) - Width 5.8 -Post Debridement Size (cm) - Depth 3.0 -Total Square Cm 15.08 -Wound/Ulcer Outcome Not Healed -Ulcer Cleansing Rinsed/ Irrigated with Saline -Foul Odor after Cleansing No -Bioengineered Tissue No -Bleeding Controlled with Pressure -Offloading No -Treatment Response Procedure Tolerated Well [See Physician Procedure note for Specifics] Pain Scale: 0-10 Numeric [Pain] -Is Patient Pain Free? Yes Debridement Note Post-Debridement Measurements/Treatment - Nurse 2 - General Ulcer CM Notes Start: 05/19/19 09:51 Freq: Status: Active Protocol: Activity Type Activity Date Activity User E-Sign Co-Sign Detail Recorded Client Recorded Date Recorded By Document 05/19/19 10:19 [id number] 05/19/19 10:20 Document 05/26/19 08:49 [id number] 05/26/19 08:51 Document 06/02/19 08:38 [id number] 06/02/19 08:53 MW 05/19/19 05/26/19 06/02/19 10:19 08:49 08:38 Wound Center Nurse 2 #1 L Chest -Time 10:19 08:50 08:39 -Correct Patient Yes Yes Yes -Correct Side, Site, Position Yes Yes Yes -Correct Procedure Yes Yes Yes -Procedure Performed Yes Yes Yes -Type of Procedure Debridement Debridement Debridement -Clinical Debridement Subcutaneous Subcutaneous Subcutaneous -Post Debridement Size (cm) - Length 1 0.8 2.6 -Post Debridement Size (cm) - Width 1.5 1.5 5.8 -Post Debridement Size (cm) - Depth 2.2 2.4 3.0 -Total Square Cm 1.5 1.20 15.08 -Wound/Ulcer Outcome Not Healed Not Healed Not Healed -Ulcer Cleansing Rinsed/ Rinsed/ Rinsed/ Irrigated with Irrigated with Irrigated with Saline Saline Saline -Foul Odor after Cleansing No No No -Bioengineered Tissue No No No -Bleeding Controlled with Pressure Pressure Pressure -Offloading No No No -Treatment Response Procedure Procedure Procedure Tolerated Well Tolerated Well Tolerated Well Pain Scale: 0-10 Numeric Is Patient Pain Free? Yes Yes Yes Wound debrided: #1 Left chest wall. Laterality: Left Wound Grade/Stage: 3. Type of Debridement: Excisional debridement Anesthesia Used: 4% Lidocaine Solution Depth: Down to and including healthy tissue, in the subcutaneous layer Percentage of wound debrided: 100 Instrument Used: 5mm curette Tissue Removed: subcutaneous tissue. Severity: Fat Layer Exposed Amount of bleeding with debridement: Mild Bleeding Controlled with: Pressure Patient tolerated procedure well - A wound culture was obtained today. Assessment/Plan Assessment: 1. Nonhealing abscess ulcer left chest wall. 2. Abscess left chest wall. 3. s/p surgical preparation left chest wall with incision and drainage and excisional debridement abscess involving chest wall muscles (16.5 cm2). Plan: Continue the Dakin's dressing changes daily because of the increase in biofilm which has improved. He has finished the Augmentin for the operative culture that showed Anaerobic cocci. His Prealbumin from 03/01/19 was 27.2. Encouraged nutritional supplementation with protein to help the healing process. Discussed further operative debridement and secondary wound closure. He will think about it and let me know. Early June would be a good time for surgical closure if needed. A wound culture was done today in preparation for possible surgery. A positive culture will necessitate antibiotic therapy. There is still a slight depth to the ulcer. Follow up one week.
[2019-06-09 08:11] VITALS: BP 148/85; PULSE 63; RESP 18; TEMP 36.8; BMI 33.2
--- NOTE | 2019-06-09 12:10 | PCM.WC.PN ---
(1) Healing skin ulcer with fat layer exposed Status: Chronic Current Visit: Yes Code(s): L98.492 - Non-pressure chronic ulcer of skin of other sites with fat layer exposed Comment: nonhealing ulcer left chest wall Type of Wound Date of Service: 06/09/19 Chief Complaint: Nonhealing abscess ulcer left chest wall. History of Wound: Surgery 02/28/19 - Surgical preparation left chest wall with incision and drainage and excisional debridement abscess involving chest wall muscles (16.5 cm2). Wound care - Dakin's. Operative culture - Anaerobic cocci. He was placed on Augmentin and has finished them. Prealbumin from 03/01/19 was 27.2. Encourage nutritional supplementation with protein to help the healing process. CT Chest from 02/27/19 showed subcutaneous edema with fluid collection suggesting abscess in the left anterior chest wall. Today he denies fever. His appetite is good. Progress of Wound: Slightly improved. - Physical Exam Vital Signs Temp Pulse Resp BP 98.3 F 63 18 148/85 H 06/09/19 08:11 06/09/19 08:11 06/09/19 08:11 06/09/19 08:11 General: Alert, Oriented x3, Cooperative HEENT: Atraumatic, PERRLA Oral: Moist Mucosa Lungs: Normal air movement Cardiovascular: Regular rate Extremities: No edema, Capillary Refill Less than 3 Seconds Skin: Ulcer/ Wound - Left chest/upper abdomen ulcer Wound Measurements and Assessment WC - Nurse 1 - General Ulcer Measurement Start: 05/19/19 09:51 Freq: Status: Active Protocol: Activity Type Activity Date Activity User E-Sign Co-Sign Detail Recorded Client Recorded Date Recorded By Document 06/09/19 08:11 DL [id number] 06/09/19 08:19 DL 06/09/19 08:11 Wound Center Nurse 1 [Ulcer Assessment] #1 L Chest -Current Size (cm) - Length 0.5 -Current Size (cm) - Width 0.8 -Current Size (cm) - Depth 2.1 -Total Square Cm 0.40 -Photo Taken No -Tunneling No -Tunneling Position (O'clock) 12 -Tunneling Distance (cm) 2.1 -Undermining/Tunneling No -Exudate Amt Small -Exudate Type Serosanguineous -Wound Margin Distinct, Outline Attached -Granulation Amt Medium (34-66%) -Granulation Quality Red -Necrosis Amt Medium (34-66%) -Necrotic Tissue Type Adherent Slough -Structure Exposed N/A -Texture (Radha-wound Skin Appearance) Localized Edema ,Scarring -Moisture (Radha-wound Skin Appearance No Abnormality ) -Color (Radha-wound Skin Appearance) No Abnormality -Temperature (Radha-wound Skin No Abnormality Appearance) (Pt Warm) -Tenderness on Palpation (Radha-wound No Skin Appearance) -Ulcer Cleansing Rinsed/ Irrigated with Saline -Foul Odor after Cleansing No -Anesthetic Used 5% Lidocaine Gel - Nurse 2 - General Ulcer CM Notes Start: 05/19/19 09:51 Freq: Status: Active Protocol: Activity Type Activity Date Activity User E-Sign Co-Sign Detail Recorded Client Recorded Date Recorded By Document 06/09/19 09:06 MW [id number] 06/09/19 09:09 MW 06/09/19 09:06 Wound Center Nurse 2 [Procedure/Treatment] -Time 09:07 -Correct Patient Yes -Correct Side, Site, Position Yes -Correct Procedure Yes -Procedure Performed Yes -Type of Procedure Debridement -Clinical Debridement Subcutaneous -Post Debridement Size (cm) - Length 0.6 -Post Debridement Size (cm) - Width 1.1 -Post Debridement Size (cm) - Depth 1.8 -Total Square Cm 0.66 -Wound/Ulcer Outcome Not Healed -Ulcer Cleansing Rinsed/ Irrigated with Saline -Foul Odor after Cleansing No -Bioengineered Tissue No -Bleeding Controlled with Pressure -Offloading No -Treatment Response Procedure Tolerated Well [See Physician Procedure note for Specifics] Pain Scale: 0-10 Numeric [Pain] -Is Patient Pain Free? Yes Musculoskeletal: No Tenderness to Palpation of Joints or Extremities Neurological: Neuro grossly intact Psych/Mental Status: Normal Affect, Appropriate Debridement Note Post-Debridement Measurements/Treatment - Nurse 2 - General Ulcer CM Notes Start: 05/19/19 09:51 Freq: Status: Active Protocol: Activity Type Activity Date Activity User E-Sign Co-Sign Detail Recorded Client Recorded Date Recorded By Document 05/19/19 10:19 JF [id number] 05/19/19 10:20 Document 05/26/19 08:49 JF [id number] 05/26/19 08:51 JF Document 06/02/19 08:38 MW [id number] 07/15/19 08:53 MW Document 06/09/19 09:06 MW [id number] 06/09/19 09:09 MW 05/19/19 05/26/19 06/02/19 10:19 08:49 08:38 Wound Center Nurse 2 #1 L Chest -Time 10:19 08:50 08:39 -Correct Patient Yes Yes Yes -Correct Side, Site, Position Yes Yes Yes -Correct Procedure Yes Yes Yes -Procedure Performed Yes Yes Yes -Type of Procedure Debridement Debridement Debridement -Clinical Debridement Subcutaneous Subcutaneous Subcutaneous -Post Debridement Size (cm) - Length 1 0.8 2.6 -Post Debridement Size (cm) - Width 1.5 1.5 5.8 -Post Debridement Size (cm) - Depth 2.2 2.4 3.0 -Total Square Cm 1.5 1.20 15.08 -Wound/Ulcer Outcome Not Healed Not Healed Not Healed -Ulcer Cleansing Rinsed/ Rinsed/ Rinsed/ Irrigated with Irrigated with Irrigated with Saline Saline Saline -Foul Odor after Cleansing No No No -Bioengineered Tissue No No No -Bleeding Controlled with Pressure Pressure Pressure -Offloading No No No -Treatment Response Procedure Procedure Procedure Tolerated Well Tolerated Well Tolerated Well Pain Scale: 0-10 Numeric Is Patient Pain Free? Yes Yes Yes 06/09/19 09:06 Wound Center Nurse 2 #1 L Chest -Time 09:07 -Correct Patient Yes -Correct Side, Site, Position Yes -Correct Procedure Yes -Procedure Performed Yes -Type of Procedure Debridement -Clinical Debridement Subcutaneous -Post Debridement Size (cm) - Length 0.6 -Post Debridement Size (cm) - Width 1.1 -Post Debridement Size (cm) - Depth 1.8 -Total Square Cm 0.66 -Wound/Ulcer Outcome Not Healed -Ulcer Cleansing Rinsed/ Irrigated with Saline -Foul Odor after Cleansing No -Bioengineered Tissue No -Bleeding Controlled with Pressure -Offloading No -Treatment Response Procedure Tolerated Well Pain Scale: 0-10 Numeric Is Patient Pain Free? Yes Wound debrided: Left chest ulcer Laterality: Left Type of Debridement: Excisional debridement Anesthesia Used: 5% Lidocaine Gel Depth: Down to and including healthy tissue, in the subcutaneous layer Percentage of wound debrided: 100 Instrument Used: 3mm curette Tissue Removed: Subcutaneous tissue and slough Severity: Fat Layer Exposed Amount of bleeding with debridement: Mild Bleeding Controlled with: Compression and gauze Patient tolerated procedure well Assessment/Plan Active Problems Healing skin ulcer with fat layer exposed (Chronic) nonhealing ulcer left chest wall Assessment: 1. Nonhealing abscess ulcer left chest wall. 2. Abscess left chest wall. 3. s/p surgical preparation left chest wall with incision and drainage and excisional debridement abscess involving chest wall muscles (16.5 cm2). Plan: Patient stopped the Dakin's because it was irritating his skin. He will continue the silver dressing for wound care. 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 He has finished the Augmentin for the operative culture that showed Anaerobic cocci. His Prealbumin from 03/01/19 was 27.2. The wound cultures from 06/02/19 were negative for bacterial growth. Encouraged nutritional supplementation with protein to help the healing process. Discussed further operative debridement and secondary wound closure. He is scheduled for 06/19/19 for wound closure. There is still a slight depth to the ulcer. Follow up one week. Code Visit [id number]: [id number] Aliyah subq tissue 20 sq cm/<
[2019-06-16 07:58] VITALS: BP 138/81; PULSE 61; RESP 18; TEMP 36.5; BMI 33.2
--- NOTE | 2019-06-16 18:06 | PN.PCM_ITS ---
Type of Wound Date of Service: 06/16/19 Chief Complaint: Nonhealing abscess ulcer left chest wall. History of Wound: Surgery 02/28/19 - Surgical preparation left chest wall with incision and drainage and excisional debridement abscess involving chest wall muscles (16.5 cm2). Wound care - Dakin's. Operative culture - Anaerobic cocci. He was placed on Augmentin and has finished them. Prealbumin from 03/01/19 was 27.2. Encourage nutritional supplementation with protein to help the healing pr ocess. CT Chest from 02/27/19 showed subcutaneous edema with fluid collection suggesting abscess in the left anterior chest wall. Today he denies fever. His appetite is good. He is scheduled for operative debridement and complex secondary wound closure this , 06/19/19. A preop culture was done on 06/02/19 which was negative. Progress of Wound: Slightly improved. - Physical Exam Vital Signs Temp Pulse Resp BP 97.7 F L 61 18 138/81 H 06/16/19 07:58 06/16/19 07:58 06/16/19 07:58 06/16/19 07:58 Debridement Note Post-Debridement Measurements/Treatment WC - Nurse 2 - General Ulcer CM Notes Start: 05/19/19 09:51 Freq: Status: Active Protocol: Activity Type Activity Date Activity User E-Sign Co-Sign Detail Recorded Client Recorded Date Recorded By Document 05/19/19 10:19 [id number] 05/19/19 10:20 JF Document 05/26/19 08:49 JF [id number] 05/26/19 08:51 JF Document 06/02/19 08:38 MW [id number] 06/02/19 08:53 MW Document 06/09/19 09:06 MW [id number] 06/09/19 09:09 MW Document 06/16/19 08:53 MW [id number] 06/16/19 08:56 MW 05/19/19 05/26/19 06/02/19 10:19 08:49 08:38 Wound Center Nurse 2 #1 L Chest -Time 10: 08:50 08:39 -Correct Patient Yes Yes Yes -Correct Side, Site, Position Yes Yes Yes -Correct Procedure Yes Yes Yes -Procedure Performed Yes Yes Yes -Type of Procedure Debridement Debridement Debridement -Clinical Debridement Subcutaneous Subcutaneous Subcutaneous -Post Debridement Size (cm) - Length 1 0.8 2.6 -Post Debridement Size (cm) - Width 1.5 1.5 5.8 -Post Debridement Size (cm) - Depth 2.2 2.4 3.0 -Total Square Cm 1.5 1.20 15.08 -Wound/Ulcer Outcome Not Healed Not Healed Not Healed -Ulcer Cleansing Rinsed/ Rinsed/ Rinsed/ Irrigated with Irrigated with Irrigated with Saline Saline Saline -Foul Odor after Cleansing No No No -Bioengineered Tissue No No No -Bleeding Controlled with Pressure Pressure Pressure -Offloading No No No -Treatment Response Procedure Procedure Procedure Tolerated Well Tolerated Well Tolerated Well Pain Scale: 0-10 Numeric Is Patient Pain Free? Yes Yes Yes 06/09/19 06/16/19 09:06 08:53 Wound Center Nurse 2 #1 L Chest -Time 09:07 08:56 -Correct Patient Yes Yes -Correct Side, Site, Position Yes Yes -Correct Procedure Yes Yes -Procedure Performed Yes Yes -Type of Procedure Debridement Debridement -Clinical Debridement Subcutaneous Subcutaneous -Post Debridement Size (cm) - Length 0.6 0.7 -Post Debridement Size (cm) - Width 1.1 0.9 -Post Debridement Size (cm) - Depth 1.8 1.6 -Total Square Cm 0.66 0.63 -Wound/Ulcer Outcome Not Healed Not Healed -Ulcer Cleansing Rinsed/ Rinsed/ Irrigated with Irrigated with Saline Saline -Foul Odor after Cleansing No No -Bioengineered Tissue No No -Bleeding Controlled with Pressure Pressure -Offloading No No -Treatment Response Procedure Procedure Tolerated Well Tolerated Well Pain Scale: 0-10 Numeric Is Patient Pain Free? Yes Yes Wound debrided: #1 Left chest wall. Laterality: Left Wound Grade/Stage: 3. Type of Debridement: Excisional debridement Anesthesia Used: 4% Lidocaine Solution Depth: Down to and including healthy tissue, in the subcutaneous layer Percentage of wound debrided: 100 Instrument Used: 5mm curette Tissue Removed: subcutaneous tissue. Severity: Fat Layer Exposed Amount of bleeding with debridement: Mild Bleeding Controlled with: Pressure Patient tolerated procedure well Assessment/Plan Assessment: 1. Nonhealing abscess ulcer left chest wall. 2. Abscess left chest wall. 3. s/p surgical preparation left chest wall with incision and drainage and excisional debridement abscess involving chest wall muscles (16.5 cm2). Plan: Continue the Dakin's dressing changes daily because of the increase in biofilm which has improved. He has finished the Augmentin for the operative culture that showed Anaerobic cocci. His Prealbumin from 03/01/19 was 27.2. Encouraged nutritional supplementation with protein to help the healing process. He is scheduled for operative debridement and complex secondary wound closure this , 06/19/19. A wound culture done on 06/02/19 was negative. There is still a slight depth to the ulcer. Follow up 2 weeks which will be after the surgery. The patient was informed of the risks and complications of the procedure including alternatives to surgery. These were discussed with him personally. He voices understanding and wishes to proceed.
== END 2019-06-18 23:59 ==
LOC: WC 08:15
PROVIDERS: Visit Provider Nurse Practitioner Family
DX: L02.213 Cutaneous abscess of chest wall (principal); S21.102A Unspecified open wound of left front wall of thorax without penetration into thoracic cavity, initial encounter; Y83.8 Other surgical procedures as the cause of abnormal reaction of the patient, or of later complication, without mention of misadventure at the time of the procedure; T81.89XA Other complications of procedures, not elsewhere classified, initial encounter
CPT/HCPCS: 11042; 87070; 87075; 87205

== ENCOUNTER 2019-06-19 05:53 | Day surgery (SDC) | payer OTHER, SELFPAY ==
[2019-06-09 08:11] VITALS: BMI 33.2
[2019-06-19 06:17] VITALS: BP 144/82; PULSE 64; RESP 16; TEMP 36.8; O2SAT 98; BMI 34.4
--- NOTE | 2019-06-19 06:33 | PCM.HP.BLA ---
History and Physical Date of Admission: 06/19/19 HISTORY OF PRESENT ILLNESS The patient is a 38 year old M who developed a left chest wall abscess that required operative drainage in 03/07. Cultures showed Anaerobes and he was treated with Augmentin. Wound care was started with the VAC and was changed to Silver dressings. Some healing occurred initially. 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 He stated the dressing would become dislodged from time to time at work so further operative debridement and secondary wound closure was recommended to the patient. PAST MEDICAL HISTORY Left chest wall abscess. PAST SURGICAL HISTORY Right hip replacement, hernia repair, tonsillectomy. Surgical preparation left chest wall with incision and drainage and excisional debridement abscess involving chest wall muscles (16.5 cm2) - 02/28/19. ALLERGIES No Known Allergies Allergy MEDICATIONS Ibuprofen SOCIAL HISTORY Lives: Spouse/ Significant Other Smoking Status: Never smoker Tobacco Use: Non-smoker Alcohol: Occasional Drugs: None FAMILY HISTORY Paternal - High Cholesterol, Heart Disease - open heart, Hypertension REVIEW OF SYSTEMS Comment: Constitutional: Denies: Chills, Fever, Weight Change. HEENT: Denies: Head Aches, Sinus Congestion, Sinus Drainage. Cardiovascular: Denies: Chest Pain, Palpitations. Respiratory: Denies: Cough, Shortness of breath at rest, Sputum production. Gastrointestinal: Denies: Abdominal Pain, Nausea, Vomiting. Genitourinary: Denies: Dysuria. Musculoskeletal: Denies: Joint Pain, Joint Tenderness. Skin: Reports: - - Left chest area of redness below left nipple, incision area from attempted abscess drainage. Neurological: Denies: Numbness, Tingling, Focal weakness. Psychiatric: Denies: Anxiety, Depression, Homicidal Ideations, Suicidal Ideations. Hematologic/ Lymphatic: Denies: Easy Bruising, Easy Bleeding PHYSICAL EXAMINATION General: Alert, Oriented x3, Cooperative. HEENT: PERRLA, EOMI. Neck: Supple, nontender. No cervical adenopathy. Chest Wall: Lungs: Clear to auscultation. On the left chest wall inferior to the nipple is a nonhealing ulcer that measures 2 x 1 x 2 cm. There is surrounding indurated scar tissue that measures 6 x 3 cm. No evidence of infection. Some granulation tissue is present. No purulent drainage noted. Abdomen: Soft, Non-Distended. Extremities: No clubbing, No cyanosis, No edema. No axillary adenopathy. Musculoskeletal: No Tenderness to Palpation of Joints or Extremities Neurological: Cranial nerves II-XII grossly intact. Psych/Mental Status: Normal Affect, Appropriate ASSESSMENT 1. Nonhealing abscess ulcer left chest wall. 2. History of left chest wall abscess. 3. History of I&D of left chest wall abscess. PLAN Recommend operative debridement of this nonhealing ulcer left chest wall with complex secondary wound closure. Will send tissue to Pathology for analysis and to Microbiology for culture. A positive culture will necessitate antibiotic therapy. He will have a drain postoperatively. He will also wear a chest wall SHAI wrap for compression for several weeks. Surgery will be done on an outpatient basis under general anesthesia. Patient was informed of the risks and complications of the procedure including alternatives to surgery. These were discussed with the patient personally. Patient voices understanding and wishes to proceed. Some of the risks and complications were included in a form from the [employer].
--- NOTE | 2019-06-19 07:30 | UL_PTH ---
PATIENT: SANDOVAL JALLOH LOC: [facility] [place] U#:[id number] AGE/SX: 38/M ROOM: RE06/19/[address]: Dr. Joseph Josue MD : 1980 BED: DIS: 06/19/2019 SPEC #: [id number] RECD: 06/19/19 10:09 STATUS: LISA JAMAL #: [id number] MARU: 06/19/19 07:[address]: Joseph Josue DEPT: SURGICAL PATHOLOGY RECD BY: Layo Alvarez ENTERED: 06/19/19 13:35 SP TYPE: ULCER OTHR DR: No Primary Care Phys Tissues: ULCER Procedures: Surgery Specimen Level III HEADER OPERATION: Surgical preparation left chest wall with excisional debridement PRE-OP DIAGNOSIS: Nonhealing ulcer left chest wall TISSUE SUBMITTED: Debrided soft tissue left chest wall MICROSCOPIC DIAGNOSIS Skin and soft tissue of left chest wall, biopsy: Ulceration with associated acute and chronic inflammation and granulation. AM:elmer 06/20/19 COMMENT Reference is made to the patient's previous left chest wall skin and soft tissue excision from 03/04/19 ([id number]) with similar findings. MICROSCOPIC DESCRIPTION Slides are reviewed. GROSS DESCRIPTION Received in fixative is one container labeled with the patient's name and designated debrided soft tissue left chest wall. The specimen consists of a piece of skin with underlying tissue measuring 4.5 x 1 cm and to a depth of 3 cm. No mass lesion is identified. Researcher sections are submitted in two cassettes. / SJ:elmer 06/19/19 TC:2 CPT: 45546
[2019-06-19 08:37] VITALS: BP 112/64; BP 144/82; PULSE 66; RESP 16; TEMP 36.1; O2SAT 94
[2019-06-19 08:45] VITALS: BP 109/59; BP 144/82; PULSE 53; RESP 16; O2SAT 92
[2019-06-19 09:00] VITALS: BP 102/58; BP 144/82; PULSE 52; RESP 16; O2SAT 93
[2019-06-19 09:04] VITALS: BP 104/57; BP 144/82; PULSE 74; RESP 16; TEMP 36.6; O2SAT 95
--- NOTE | 2019-06-19 09:11 | PCM.OPRPT ---
Report of Operation Date of Procedure: 06/19/19 Pre-Operative Diagnosis: 1. Nonhealing abscess ulcer left chest wall. 2. History of left chest wall abscess. Post-Operative Diagnosis: Same. Surgery/Procedure Performed:: Surgical preparation left chest wall with excisional debridement nonhealing abscess ulcer with 7 cm complex secondary wound closure. Description of Surgical Findings:: The patient is a 38 year old M who developed a left chest wall abscess that required operative drainage in 03/07. Cultures showed Anaerobes and he was treated with Augmentin. Wound care was started with the VAC and was changed to Silver dressings. Some healing occurred initially. When he went back to work as an [employer], further healing stalled. He stated the dressing would become dislodged from time to time at work so further operative debridement and secondary wound closure was recommended to the patient. Patient was informed of the risks and complications of the procedure including alternatives to surgery. These were discussed with the patient personally. Patient voices understanding and wishes to proceed. Some of the risks and complications were included in a form from the [employer]. I used Brett absorbable hemostat. Reference Number - [id number]. Lot Number - [id number]. Expiration - February 14, 2024. 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 Drains: Rojelio. Estimated Blood Loss (mL): 10 ml. Description of Procedure: Patient was taken to OR in supine position and was placed under general anesthesia. The left chest wall was prepped and draped in the usual fashion. SCD's were placed for DVT prophylaxis. Perioperative antibiotics were given intravenously. The nonhealing abscess ulcer left chest wall was infiltrated with xylocaine and epinephrine. After waiting 5 minutes for the anesthetic to take effect, I made a elliptical incision to include the ulcer as well as the surrounding indurated scar tissue. Dissection was carried down through the subcutaneous tissue. There was a thickened scar capsule surrounding the base of the ulcer which explained the inability to completely heal. The indurated scar tissue extended to the chest wall muscle and fascia. There was no involvement of the underlying muscle. Some of the tissue was sent to Pathology for analysis to rule out carcinoma and to Microbiology for culture. A positive culture may necessitate antibiotic modification. No pus was seen. The wound was irrigated with saline. Hemostasis was obtained with electrocautery. I then sprayed Brett absorbable hemostat into the wound to minimize seroma formation postoperatively. A size 15 Rojelio drain was placed through a separate stab incision laterally and secured to the skin with 3-0 Nylon suture. The wound was closed in complex fashion with 3-0 Monocryl figure of eight interrupted sutures for the deep subcutaneous tissue and Muna's fascia to minimize the space. The deep dermis an subcutaneous tissue was approximated with 3-0 Monocryl interrupted sutures. The skin was approximated with 4-0 V lock unidirectional barbed running subcuticular suture. This was followed by Histoacryl skin tissue adhesive. This was followed by a Kerlix gauze compression dressing and an SHAI wrap for chest wall compression. The length of the complex closure was 7 cm. Patient tolerated the procedure well and was sent to PACU in satisfactory condition. Patient will be sent home on antibiotics He already has pain medication at home. Patient will followup in a week for a wound check and for discussion of the pathology report and for discussion of the Microbiology report. A positive culture will necessitate antibiotic therapy. I will remove the drain in 10-14 days. Patient also had a couple of small skin tags on his areola that have been irritated from the tape from the wound dressing over the last few months. They were excised today without difficulty to minimize discomfort from tape from this operative dressing. Grafts/Implants Used: None. - Complications None. - Admit VTE Documentation VTE Present on Admission: No VTE Mechan Device Prophylaxis: SCD's VTE Pharm Prophylaxis ordered?: No Code Visit Surgery Charges CPT - 29737 ICD-10 - L98.492, L02.213 95704 L98.492, L02.213
--- NOTE | 2019-06-19 09:18 | DCINST_ITS ---
You will use the following diet at home:: No restrictions Discharge Activity: May not drive while taking narcotic pain medications., May Not Shower - until the drain is removed., - - no heavy lifting. keep head elevated. May shower in (days): 11 - after the drain is removed. May resume sexual activity in: No Restrictions Weight Bearing Status: Weight bearing as tolerated Lifting Restrictions: 20 lbs. Keep extremity elevated above heart level: - - elevate head. Call your doctor if your incision/area has: Continuous Slow Oozing, Sudden Increased Bleeding, Increased Pain/ Swelling, Increased Redness, Foul Smelling Discharge, Swelling at the incision site Call your doctor if you observe: Fever of 101 or Higher, Coldness, Increased Pain, Shortness of breath, Chest pain, Calf discomfort, Uncontrolled pain Suture Line Care: - - dry dressings daily after operative dressing removed. may change dressing in couple of days if itching or discomfort. Otherwise may change the dressing early next week. Change Dressing in (Days):: 5 - dry dressings daily after the operative dressing is removed. Cleanse incision/area with: - - may get incision wet in the shower after the drain is removed. Drain: Suction - javier drain to bulb suction. empty and record output daily. Additional Instructions: Patient has pain medication and Valium at home that he will take on an as needed basis. He also has some residual Augmentin left that he will finish before filling the operative script. Allergies/Adverse Reactions: Allergies No Known Allergies Allergy (Verified 06/12/19 14:57) Medications to take at Discharge Amoxicillin/Potassium Clav [Augmentin 875-125 Tablet] 1 ea PO BID #20 tab 06/19/19 The following prescriptions were given: Amoxicillin/Potassium Clav [Augmentin 875-125 Tablet] 1 ea PO BID #20 tab Prescription Printed Primary Care Physician: Care Physician,No Primary [Primary Care Provider] - Test Results: Test results from this visit will be discussed in further detail at your follow- up appointment, if applicable. Please Follow Up With: Joseph Josue MD When: sunday06/30/19 at wound center. call [phone] if any questions. Proposed Discharge Date: 06/19/19
[2019-06-19 09:59] VITALS: BP 144/82
== END 2019-06-19 10:00 | disposition home or self-care (01) ==
LOC: SDC 05:54 → AC 05:55
PROVIDERS: Referring Provider Surgery; Visit Provider Surgery
PROC: (CPT 11042; principal; 2019-06-19 07:15)
DX: L98.498 Non-pressure chronic ulcer of skin of other sites with other specified severity (principal); L02.213 Cutaneous abscess of chest wall
CPT/HCPCS: 00400; 11042; 12032; 87070; 87075; 87077; 87102; 87186; 87205; 87206; 88304; J7120; J0295; J2405

== ENCOUNTER 2019-06-30 08:06 | Outpatient (RCR) | payer OTHER, SELFPAY ==
[2019-06-19 00:48] VITALS: BP 138/81; PULSE 61; RESP 18; TEMP 36.5
[2019-06-23 16:57] VITALS: BMI 34.4
--- NOTE | 2019-06-30 23:38 | PCM.WC.PN ---
Type of Wound Date of Service: 06/30/19 Chief Complaint: Nonhealing abscess ulcer left chest wall s/p surgical closure. History of Wound: Surgery 06/19/19 - Surgical preparation left chest wall with excisional debridement nonhealing abscess ulcer with 7 cm complex secondary wound closure. Operative culture - MRSE. Was discharged on Augmentin. Will change his antibiotic to Doxycycline. Has operative drain that is draining less than 10 ml per day. Today he denies fever. His appetite is good. Progress of Wound: Recent surgical closure 06/19/19. - Physical Exam Vital Signs Temp Pulse Resp BP 97.7 F L 61 18 138/81 H 06/19/19 00:48 06/19/19 00:48 06/19/19 00:48 06/19/19 00:48 General: Alert, Oriented x3 HEENT: PERRLA, EOMI Oral: Moist Mucosa Neck: Supple Abdomen: Soft, Non-Distended Skin: Incision - left chest wall incision dry and intact. No clinical evidence of hematoma. Wound Measurements and Assessment WC - Nurse 2 - General Ulcer CM Notes Start: 06/30/19 08:30 Freq: Status: Active Protocol: Activity Type Activity Date Activity User E-Sign Co-Sign Detail Recorded Client Recorded Date Recorded By Document 06/30/19 08:30 [id number] 06/30/19 08:30 06/30/19 08:30 Wound Center Nurse 2 [Procedure/Treatment] #1 L Chest -Correct Patient No -Correct Side, Site, Position No -Correct Procedure No -Procedure Performed No -Post Debridement Size (cm) - Length 0 -Post Debridement Size (cm) - Width 0 -Post Debridement Size (cm) - Depth 0 -Total Square Cm 0 -Wound/Ulcer Outcome Healed- Epithelialized [See Physician Procedure note for Specifics] Pain Scale: 0-10 Numeric [Pain] -Is Patient Pain Free? Yes Neurological: Cranial nerves II-XII grossly intact Psych/Mental Status: Normal Affect, Appropriate Debridement Note Post-Debridement Measurements/Treatment - Nurse 2 - General Ulcer CM Notes Start: 06/30/19 08:30 Freq: Status: Active Protocol: Activity Type Activity Date Activity User E-Sign Co-Sign Detail Recorded Client Recorded Date Recorded By Document 06/30/19 08:30 JF [id number] 06/30/19 08:30 06/30/19 08:30 Wound Center Nurse 2 #1 L Chest -Correct Patient No -Correct Side, Site, Position No -Correct Procedure No -Procedure Performed No -Post Debridement Size (cm) - Length 0 -Post Debridement Size (cm) - Width 0 -Post Debridement Size (cm) - Depth 0 -Total Square Cm 0 -Wound/Ulcer Outcome Healed- Epithelialized Pain Scale: 0-10 Numeric Is Patient Pain Free? Yes Wound debrided: #1 Left chest wall. Laterality: Left Wound Grade/Stage: 3. - - No debridement was done today as he recently had surgical closure on 06/19/19. Assessment/Plan Assessment: 1. Nonhealing abscess ulcer left chest wall, s/p surgical preparation left chest wall with excisional debridement nonhealing abscess ulcer with 7 cm complex secondary wound closure. 2. Abscess left chest wall. 3. s/p surgical preparation left chest wall with incision and drainage and excisional debridement abscess involving chest wall muscles (16.5 cm2). Plan: Drain was removed today. Drainage has been less than 10 ml per day. Continue chest wall binder for at least a couple more weeks and then continue when he is at work. Operative culture showed MRSE. Will stop the Augmentin. Wrote script for Doxycycline. He is discharged from the Wound Center at this time. Followup office 3 weeks.
== END 2019-07-19 23:59 ==
LOC: WC 08:06
PROVIDERS: Visit Provider Nurse Practitioner Family
DX: L02.213 Cutaneous abscess of chest wall (principal); S21.102A Unspecified open wound of left front wall of thorax without penetration into thoracic cavity, initial encounter; Y83.8 Other surgical procedures as the cause of abnormal reaction of the patient, or of later complication, without mention of misadventure at the time of the procedure; T81.89XA Other complications of procedures, not elsewhere classified, initial encounter; Z86.19 Personal history of other infectious and parasitic diseases
CPT/HCPCS: 99213; G0463

== ENCOUNTER → 2023-09-27 | Outpatient (CLI) | payer OTHER, SELFPAY ==
--- NOTE | 2023-09-27 12:47 | VDLE_ITS ---
Reason For Study: pain Procedure LEFT This is a venous duplex using B-mode, color GSV is normal. flow and spectral Doppler. CFV is compressible, spontaneous, phasic, Exam performed in department. competent, and demonstrates normal The exam was abbreviated due to the COVID 19 augmentation. protocol. FV is compressible, spontaneous, phasic, The exam was diagnostic. competent and demonstrates normal A preliminary report was called and/or faxed augmentation. to Ortiz Coon's office. POP V is compressible, spontaneous, phasic, competent and demonstrates normal augmentation. T/P Trunk is compressible. PTV is compressible. LT PerV is compressible. VL/Venous Duplex US, Unilateral Interpretation Summary Deep veins of the left lower extremity are patent and compressible segmentally. There is no evidence of left lower extremity deep vein thrombosis. The left great saphenous vein whitney ears patent and compressible segmentally. Ordering Physician: Curt Suarez Performed By: Juan Flores RVT
== END | disposition home or self-care (01) ==
PROVIDERS: PCP Family Medicine; Referring Provider Physician Assistant; Visit Provider Physician Assistant
DX: M79.662 Pain in left lower leg (principal)
CPT/HCPCS: 93971